=== PATIENT | female | born 1965 | race Caucasian/White ===

== ENCOUNTER → 2016-03-26 | Outpatient (CLI) | payer OTHER ==
[~2016-03-26] MED LIST: ASPI1TAB PO; CETI10TA PO; CHLO25TA PO; CLOT1CRE71 TOP; DRIS50002 PO; GUAI10EL PO; IBUP-1114 PO; PROV10TA PO; TYLE325T5 PO; VITMTA PO; XARE15TA PO; ZANTTAB9 PO
== END ==
LOC: M HL 14:14
PROVIDERS: ATTEND Physician Assistant
DX: E11.9 Type 2 diabetes mellitus without complications (principal)

== ENCOUNTER → 2016-04-09 | Outpatient (CLI) | payer OTHER | LOC: M HL 13:56 | PROVIDERS: ATTEND Physician Assistant | DX: E11.9 Type 2 diabetes mellitus without complications (principal) ==

== ENCOUNTER 2016-05-21 15:11 | Emergency (ER) | payer OTHER ==
[~2016-05-21] VITALS: Ht 172.7 cm; Wt 190.5 kg
[2016-05-21] MEDS ORDERED: VITA-115 PO (15:33)
[2016-05-21] MEDS ORDERED: LISI20TA3 PO (15:33)
--- NOTE | 2016-05-21 16:35 | REP ---
Right lower extremity Duplex Doppler venous ultrasound: Real time compression and duplex Doppler interrogation of the right lower extremity deep venous system is performed. The right common femoral, superficial femoral and popliteal veins are fully compressible with transducer pressure and demonstrate normal spontaneous and phasic flow, without evidence of deep venous thrombosis. Impression: No evidence of deep venous thrombosis of the right lower extremity femoral popliteal venous system. Incidental note is made of a popliteal cyst measuring 5.2 x 2 x 2.9 cm. Signed by Estrada Baker MD 05/21/2016 04:26 P
[2016-05-21] MEDS ORDERED: MOTR200T44 PO (18:02)
[2016-05-21 18:17] VITALS: BP 148/88
== END 2016-05-21 18:44 | disposition home or self-care (01) ==
LOC: M ED 16:38
DX: S86.911A Strain of unspecified muscle(s) and tendon(s) at lower leg level, right leg, initial encounter (principal); M71.21 Synovial cyst of popliteal space [Baker], right knee; X58.XXXA Exposure to other specified factors, initial encounter; Y92.89 Other specified places as the place of occurrence of the external cause; Y93.01 Activity, walking, marching and hiking; Y99.8 Other external cause status; I10 Essential (primary) hypertension; Z88.0 Allergy status to penicillin; Z91.040 Latex allergy status; Z79.899 Other long term (current) drug therapy

== ENCOUNTER → 2016-05-25 | Outpatient (CLI) | payer OTHER ==
[~2016-05-25] MED LIST changes: +LISI20TA3 PO; +MOTR200T44 PO; +VITA-115 PO
[2016-05-25 09:04] LABS: ALBUMIN 3.7 GM/DL (3.2-5.2); ALBUMIN/GLOBULIN RATIO 1.16 (1.00-1.93); ALKALINE PHOSPHATASE 56 U/L (45-117); ALT/SGPT 41 U/L (12-78); ANION GAP 6 MEQ/L (8-16); AST/SGOT 19 U/L (15-37); BILIRUBIN,TOTAL 0.6 MG/DL (0.2-1.0); BLOOD UREA NITROGEN 17 MG/DL (7-18); CALCIUM LEVEL 8.9 MG/DL (8.5-10.1); CARBON DIOXIDE LEVEL 31 MEQ/L (21-32); CHLORIDE LEVEL 102 MEQ/L (98-107); GLOMERULAR FILTRATION RATE > 60.0 (>51); GLUCOSE, FASTING 148 MG/DL (70-105); POTASSIUM SERUM 4.4 MEQ/L (3.5-5.1); SODIUM LEVEL 139 MEQ/L (136-145); TOTAL PROTEIN 6.9 GM/DL (6.4-8.2)
== END ==
LOC: M LAB 08:02
PROVIDERS: ATTEND Physician Assistant
DX: E11.9 Type 2 diabetes mellitus without complications (principal)

== ENCOUNTER → 2016-07-17 | Outpatient (CLI) | payer OTHER ==
[~2016-07-17] MED LIST changes: +METHACHOLINE KIT (J7674) INH ONE
--- NOTE | 2016-07-17 15:10 | PFTRPT ---
Tech: Nazia MOBLEY RRT Age: 50 Sex: Female Race: Height: 68.00 Inches Weight: 423.00 Lbs BSA: 2.81 Diagnosis: R05 METHACHOLINE CHALLENGE REPORT: ORDERING PROVIDER: DHIRAJ Yarbrough DATE OF SERVICE: 07/17/16 INTERPRETATION: The study was of excellent technical quality. Under protocol, methacholine was administered. At a dose of 2.5 mg (13.875 CDUs), a 28% decline in the FEV1 was noted. The PC20 of 0.74 is significant. Flow rates returned to baseline post bronchodilator administration. IMPRESSION: Positive methacholine challenge study. MTDD
== END ==
LOC: M CARPUL 07-15 13:28
PROVIDERS: ATTEND Nurse Practitioner Adult Health
DX: R05 Cough (principal)

== ENCOUNTER 2016-12-16 23:20 | Emergency (ER) | payer OTHER ==
[~2016-12-16] VITALS: Ht 172.7 cm; Wt 190.9 kg
[~2016-12-16 23:20] MED LIST changes: -METHACHOLINE KIT (J7674) INH ONE
[2016-12-16] MEDS ORDERED: ARNU1INH3 IN (23:36)
[2016-12-16] MEDS ORDERED: PROAAER10 INH (23:36)
[2016-12-16] MEDS ORDERED: ASPI81CH PO (23:36)
[2016-12-17 00:29] VITALS: BP 162/78
== END 2016-12-17 01:10 | disposition home or self-care (01) ==
LOC: M ED 23:20
DX: M54.12 Radiculopathy, cervical region (principal); E66.9 Obesity, unspecified; J45.909 Unspecified asthma, uncomplicated; I10 Essential (primary) hypertension; F41.9 Anxiety disorder, unspecified; Z79.899 Other long term (current) drug therapy; Z88.2 Allergy status to sulfonamides; Z88.0 Allergy status to penicillin; Z87.891 Personal history of nicotine dependence; Z96.9 Presence of functional implant, unspecified

== ENCOUNTER → 2016-12-23 | Outpatient (CLI) | payer OTHER ==
[~2016-12-23] MED LIST changes: +ARNU1INH3 IN; +ASPI81CH PO; +PROAAER10 INH
[2016-12-23 17:14] LABS: BASO % 0.4 % (0.0-1.0); EOS # 0.1 10^3/uL (0.0-0.50); EOS % 1.6 % (0.0-3.0); IMMATURE GRANULOCYTE % 0.6 % (0-0); LYMPH # 1.8 10^3/uL (1.5-4.5); LYMPH % 27.1 % (24.0-44.0); MEAN CORPUSCULAR HEMOGLOBIN 28.1 pg (27.0-33.0); MEAN CORPUSCULAR HGB CONC 32.2 g/dl (32.0-36.5); MEAN CORPUSCULAR VOLUME 87.1 fl (80.0-96.0); MONO # 0.5 10^3/uL (0.0-0.8); MONO % 7.7 % (0.0-5.0); NEUTROPHILS # 4.2 10^3/uL (1.8-7.7); NEUTROPHILS % 62.6 % (36.0-66.0); PLATELET COUNT, AUTOMATED 164 10^3/uL (150-450); RED CELL DISTRIBUTION WIDTH 12.9 % (11.5-14.5); WHITE BLOOD COUNT 6.8 10^3/uL (4.0-10.0)
--- NOTE | 2016-12-23 17:51 | REP ---
Left knee series: Five views: History: Primary hypertension. Left knee pain. Findings: There is advanced three compartment osteoarthritis with medial, lateral and patellofemoral narrowing and well established spur formation. There is diffuse osteopenia. No erosive changes seen. No acute bony abnormality. Impression: Advanced three compartment osteoarthritis of the left knee. Signed by Jostin Sanz MD 12/23/2016 05:53 P
[2016-12-23 18:37] LABS: ALBUMIN 3.7 GM/DL (3.2-5.2); ALBUMIN/GLOBULIN RATIO 1.03 (1.00-1.93); ALKALINE PHOSPHATASE 56 U/L (45-117); ALT/SGPT 60 U/L (12-78); ANION GAP 6 MEQ/L (8-16); AST/SGOT 31 U/L (15-37); BILIRUBIN,TOTAL 0.5 MG/DL (0.2-1.0); BLOOD UREA NITROGEN 17 MG/DL (7-18); CALCIUM LEVEL 9.3 MG/DL (8.5-10.1); CARBON DIOXIDE LEVEL 31 MEQ/L (21-32); CHLORIDE LEVEL 103 MEQ/L (98-107); CREATININE FOR GFR 0.61 MG/DL (0.55-1.02); FREE T4 1.02 NG/DL (0.76-1.46); GLOMERULAR FILTRATION RATE > 60.0 (>51); GLUCOSE, FASTING 121 MG/DL (70-105); POTASSIUM SERUM 4.2 MEQ/L (3.5-5.1); SODIUM LEVEL 140 MEQ/L (136-145); TOTAL PROTEIN 7.3 GM/DL (6.4-8.2)
== END ==
LOC: M LAB 15:56
PROVIDERS: ATTEND Physician Assistant
DX: I10 Essential (primary) hypertension (principal); E11.9 Type 2 diabetes mellitus without complications; E55.9 Vitamin D deficiency, unspecified; M79.605 Pain in left leg

== ENCOUNTER → 2016-12-24 | Outpatient (CLI) | payer OTHER ==
--- NOTE | 2016-12-24 15:58 | REP ---
Left upper extremity duplex Doppler venous ultrasound. Real time compression and duplex Doppler evaluation of the left upper extremity deep venous system is performed. The left subclavian, jugular, axillary, brachial, basilic and cephalic veins are fully compressible where accessible with transducer pressure, and demonstrate no intraluminal thrombus and normal venous waveforms. There is no evidence of deep venous thrombosis. Impression: No evidence of deep venous thrombosis of the left upper extremity deep vein system. Signed by Estrada Baker MD 12/24/2016 03:49 P
--- NOTE | 2016-12-24 16:39 | REP ---
Left lower extremity deep vein duplex ultrasound: The deep veins demonstrate normal compression, normal Doppler color flow and normal Doppler waveforms with respiration and augmentation from the popliteal vein to the common femoral vein. Impression: There is no deep vein thrombus of the left lower extremity . Signed by Estrada Osman MD 12/24/2016 04:28 P
== END ==
LOC: M RAD 14:41
PROVIDERS: ATTEND Physician Assistant
DX: R79.89 Other specified abnormal findings of blood chemistry (principal); M79.602 Pain in left arm

== ENCOUNTER → 2017-05-27 | Outpatient (CLI) | payer OTHER ==
[2017-05-27 12:03] LABS: BASO % 0.4 % (0.0-1.0); EOS # 0.1 10^3/uL (0.0-0.50); EOS % 1.4 % (0.0-3.0); HEMATOCRIT 39.8 % (36.0-47.0); HEMOGLOBIN 12.7 g/dl (12.0-16.0); IMMATURE GRANULOCYTE % 0.6 % (0-3.0); LYMPH # 1.4 10^3/uL (1.5-4.5); LYMPH % 17.2 % (24.0-44.0); MEAN CORPUSCULAR HEMOGLOBIN 27.8 pg (27.0-33.0); MEAN CORPUSCULAR HGB CONC 31.9 g/dl (32.0-36.5); MEAN CORPUSCULAR VOLUME 87.1 fl (80.0-96.0); MONO # 0.6 10^3/uL (0.0-0.8); MONO % 7.1 % (0.0-5.0); NEUTROPHILS # 5.9 10^3/uL (1.8-7.7); NEUTROPHILS % 73.3 % (36.0-66.0); PLATELET COUNT, AUTOMATED 198 10^3/uL (150-450); RED BLOOD COUNT 4.57 10^6/uL (4.00-5.40); RED CELL DISTRIBUTION WIDTH 13.2 % (11.5-14.5); WHITE BLOOD COUNT 8.1 10^3/uL (4.0-10.0)
[2017-05-27 12:24] LABS: D-DIMER QUANT 1139.9 ng/ml (<500)
[2017-05-27 12:26] LABS: ALBUMIN 3.8 GM/DL (3.2-5.2); ALBUMIN/GLOBULIN RATIO 1.06 (1.00-1.93); ALKALINE PHOSPHATASE 64 U/L (45-117); ALT/SGPT 34 U/L (12-78); ANION GAP 6 MEQ/L (8-16); AST/SGOT 22 U/L (7-37); BILIRUBIN,TOTAL 0.6 MG/DL (0.2-1.0); BLOOD UREA NITROGEN 17 MG/DL (7-18); CALCIUM LEVEL 9.3 MG/DL (8.5-10.1); CARBON DIOXIDE LEVEL 31 MEQ/L (21-32); CHLORIDE LEVEL 102 MEQ/L (98-107); CHOLESTEROL LEVEL 214 MG/DL (<200); CHOLESTEROL RISK RATIO 6.114 (<5); CREATININE FOR GFR 0.64 MG/DL (0.55-1.30); GLOMERULAR FILTRATION RATE > 60.0 (>51); GLUCOSE, FASTING 120 MG/DL (70-100); HDL CHOLESTEROL 35 MG/DL (>40); LDL CHOLESTEROL 132.4 MG/DL (<100); MAGNESIUM LEVEL 2.2 MG/DL (1.8-2.4); NON-HDL-C 179 MG/DL; POTASSIUM SERUM 4.1 MEQ/L (3.5-5.1); SODIUM LEVEL 139 MEQ/L (136-145); TOTAL PROTEIN 7.4 GM/DL (6.4-8.2); TRIGLYCERIDES LEVEL 233 MG/DL (<150)
[2017-05-27 12:33] LABS: TOTAL 25(OH) VITAMIN D 30.2 NG/ML (30.0-100.0)
[2017-05-27 12:50] LABS: ESTIMATED AVERAGE GLUCOSE 160 MG/DL (60-110); HEMOGLOBIN A1c 7.2 %
[2017-05-27 12:57] LABS: CREATININE, URINE 21.7 MG/DL; MALB URINE SIEMENS 15.6 MG/L; MAU/CREAT RATIO 71.8 MCG/MG (0.0-30.0)
== END ==
LOC: M LAB 11:24
DX: D50.9 Iron deficiency anemia, unspecified (principal); M79.605 Pain in left leg; R79.1 Abnormal coagulation profile

== ENCOUNTER → 2017-07-07 | Outpatient (REF) | payer OTHER | LOC: M SFHCCAPE 15:52 | DX: L08.9 Local infection of the skin and subcutaneous tissue, unspecified (principal) ==

== ENCOUNTER → 2018-01-14 | Outpatient (CLI) | payer OTHER | LOC: M RAD 15:39 | DX: Z12.31 Encounter for screening mammogram for malignant neoplasm of breast (principal); R92.1 Mammographic calcification found on diagnostic imaging of breast; R92.8 Other abnormal and inconclusive findings on diagnostic imaging of breast | CPT/HCPCS: 77067 ==

== ENCOUNTER → 2018-01-26 | Outpatient (CLI) | payer OTHER ==
[2018-01-26 08:13] LABS: BASO % 0.4 % (0.0-1.0); EOS # 0.2 10^3/uL (0.0-0.50); EOS % 2.5 % (0.0-3.0); HEMATOCRIT 40.9 % (36.0-47.0); HEMOGLOBIN 13.5 g/dl (12.0-15.5); IMMATURE GRANULOCYTE % 0.7 % (0-3.0); LYMPH # 1.6 10^3/uL (1.5-4.5); LYMPH % 23.6 % (24.0-44.0); MEAN CORPUSCULAR HEMOGLOBIN 28.6 pg (27.0-33.0); MEAN CORPUSCULAR VOLUME 86.7 fl (80.0-96.0); MONO # 0.6 10^3/uL (0.0-0.8); MONO % 8.1 % (0.0-5.0); NEUTROPHILS # 4.4 10^3/uL (1.8-7.7); NEUTROPHILS % 64.7 % (36.0-66.0); PLATELET COUNT, AUTOMATED 161 10^3/uL (150-450); RED BLOOD COUNT 4.72 10^6/uL (4.00-5.40); RED CELL DISTRIBUTION WIDTH 13.1 % (11.5-14.5); WHITE BLOOD COUNT 6.8 10^3/uL (4.0-10.0)
[2018-01-26 08:29] LABS: ESTIMATED AVERAGE GLUCOSE 209 MG/DL (60-110); HEMOGLOBIN A1c 8.9 %
[2018-01-26 08:51] LABS: ALBUMIN 3.7 GM/DL (3.2-5.2); ALBUMIN/GLOBULIN RATIO 1.06 (1.00-1.93); ALKALINE PHOSPHATASE 68 U/L (45-117); ALT/SGPT 39 U/L (12-78); ANION GAP 8 MEQ/L (8-16); AST/SGOT 18 U/L (7-37); BILIRUBIN,TOTAL 0.6 MG/DL (0.2-1.0); BLOOD UREA NITROGEN 17 MG/DL (7-18); CALCIUM LEVEL 8.9 MG/DL (8.5-10.1); CARBON DIOXIDE LEVEL 30 MEQ/L (21-32); CHLORIDE LEVEL 96 MEQ/L (98-107); CHOLESTEROL LEVEL 222 MG/DL (<200); CREATININE FOR GFR 0.68 MG/DL (0.55-1.30); GLOMERULAR FILTRATION RATE > 60.0 (>51); GLUCOSE, FASTING 244 MG/DL (70-100); HDL CHOLESTEROL 37 MG/DL (>40); LDL CHOLESTEROL 105 MG/DL (<100); NON-HDL-C 185 MG/DL; SODIUM LEVEL 134 MEQ/L (136-145); TOTAL PROTEIN 7.2 GM/DL (6.4-8.2); TRIGLYCERIDES LEVEL 398 MG/DL (<150)
== END ==
LOC: M LAB 07:08
DX: E11.69 Type 2 diabetes mellitus with other specified complication (principal)
CPT/HCPCS: 84443

== ENCOUNTER → 2018-04-23 | Outpatient (CLI) | payer OTHER ==
[~2018-04-23] MED LIST changes: -DRIS50002 PO; +DRIS50003 PO
[2018-04-23 09:54] LABS: BASO % 0.6 % (0.0-1.0); EOS # 0.3 10^3/uL (0.0-0.50); EOS % 4.2 % (0.0-3.0); HEMATOCRIT 42.3 % (36.0-47.0); HEMOGLOBIN 13.3 g/dl (12.0-15.5); LYMPH # 1.6 10^3/uL (1.5-4.5); LYMPH % 23.4 % (24.0-44.0); MEAN CORPUSCULAR HEMOGLOBIN 27.8 pg (27.0-33.0); MEAN CORPUSCULAR HGB CONC 31.4 g/dl (32.0-36.5); MEAN CORPUSCULAR VOLUME 88.3 fl (80.0-96.0); MONO # 0.5 10^3/uL (0.0-0.8); MONO % 7.4 % (0.0-5.0); NEUTROPHILS # 4.4 10^3/uL (1.8-7.7); NEUTROPHILS % 63.8 % (36.0-66.0); PLATELET COUNT, AUTOMATED 154 10^3/uL (150-450); RED BLOOD COUNT 4.79 10^6/uL (4.00-5.40); WHITE BLOOD COUNT 6.9 10^3/uL (4.0-10.0)
[2018-04-23 10:07] LABS: ALBUMIN 3.7 GM/DL (3.2-5.2); ALT/SGPT 45 U/L (12-78); BILIRUBIN,TOTAL 0.6 MG/DL (0.2-1.0); BLOOD UREA NITROGEN 17 MG/DL (7-18); CARBON DIOXIDE LEVEL 31 MEQ/L (21-32); CHLORIDE LEVEL 103 MEQ/L (98-107); CHOLESTEROL LEVEL 207 MG/DL (<200); CHOLESTEROL RISK RATIO 5.447 (<5); CREATININE FOR GFR 0.54 MG/DL (0.55-1.30); GLOMERULAR FILTRATION RATE > 60.0 (>51); GLUCOSE, FASTING 117 MG/DL (70-100); HDL CHOLESTEROL 38 MG/DL (>40); LDL CHOLESTEROL 134 MG/DL (<100); NON-HDL-C 169 MG/DL; SODIUM LEVEL 140 MEQ/L (136-145); TOTAL PROTEIN 7.2 GM/DL (6.4-8.2); TRIGLYCERIDES LEVEL 177 MG/DL (<150)
[2018-04-23 10:50] LABS: HEMOGLOBIN A1c 7.3 %
== END ==
LOC: M LAB 08:06
PROVIDERS: ATTEND Physician Assistant
DX: E11.69 Type 2 diabetes mellitus with other specified complication (principal)

== ENCOUNTER → 2018-07-09 | Outpatient (CLI) | payer OTHER ==
[~2018-07-09] MED LIST changes: -ASPI1TAB PO; -ASPI81CH PO; +ASPI81CH49 PO; +ASPI81TA26 PO; +CHLO125TA PO; -CHLO25TA PO; +GUAI100L5 PO; -GUAI10EL PO
[2018-07-09 17:31] LABS: BASO % 0.4 % (0.0-1.0); EOS # 0.3 10^3/uL (0.0-0.50); EOS % 4.2 % (0.0-3.0); HEMATOCRIT 39.9 % (36.0-47.0); HEMOGLOBIN 12.8 g/dl (12.0-15.5); LYMPH # 2.3 10^3/uL (1.5-4.5); LYMPH % 31.4 % (24.0-44.0); MEAN CORPUSCULAR HEMOGLOBIN 28.8 pg (27.0-33.0); MEAN CORPUSCULAR HGB CONC 32.1 g/dl (32.0-36.5); MEAN CORPUSCULAR VOLUME 89.7 fl (80.0-96.0); MONO # 0.5 10^3/uL (0.0-0.8); MONO % 6.5 % (0.0-5.0); NEUTROPHILS # 4.2 10^3/uL (1.8-7.7); NEUTROPHILS % 57.2 % (36.0-66.0); PLATELET COUNT, AUTOMATED 153 10^3/uL (150-450); RED BLOOD COUNT 4.45 10^6/uL (4.00-5.40); WHITE BLOOD COUNT 7.4 10^3/uL (4.0-10.0)
[2018-07-09 17:55] LABS: ALBUMIN 3.9 GM/DL (3.2-5.2); ALT/SGPT 37 U/L (12-78); BILIRUBIN,TOTAL 0.5 MG/DL (0.2-1.0); BLOOD UREA NITROGEN 20 MG/DL (7-18); CALCIUM LEVEL 8.9 MG/DL (8.5-10.1); CARBON DIOXIDE LEVEL 30 MEQ/L (21-32); CHLORIDE LEVEL 105 MEQ/L (98-107); CREATININE FOR GFR 0.67 MG/DL (0.55-1.30); GLOMERULAR FILTRATION RATE > 60.0 (>51); GLUCOSE, FASTING 91 MG/DL (70-100); POTASSIUM SERUM 3.9 MEQ/L (3.5-5.1); SODIUM LEVEL 141 MEQ/L (136-145); TOTAL PROTEIN 6.9 GM/DL (6.4-8.2)
[2018-07-09 18:07] LABS: HEMOGLOBIN A1c 6.2 %
== END ==
LOC: M LAB 16:55
PROVIDERS: ATTEND Surgery
DX: Z01.812 Encounter for preprocedural laboratory examination (principal); K21.9 Gastro-esophageal reflux disease without esophagitis; G47.33 Obstructive sleep apnea (adult) (pediatric)

== ENCOUNTER → 2018-08-28 | Outpatient (REF) | payer OTHER ==
[2018-08-28 21:49] LABS: APPEARANCE, URINE CLOUDY (CLEAR); BACTERIA, URINE AUTO 2+ (NEGATIVE); BILIRUBIN, URINE AUTO NEGATIVE (NEGATIVE); BLOOD, URINE BLOOD 2+ (NEGATIVE); COLOR, URINE YELLOW (YELLOW); GLUCOSE, URINE (UA) AUTO NEGATIVE (NEGATIVE); KETONE, URINE AUTO 1+ mg/dL (NEGATIVE); LEUKOCYTE ESTERASE, URINE AUTO 3+ (NEGATIVE); MUCUS, URINE SMALL (NEGATIVE); NITRITE, URINE AUTO NEGATIVE (NEGATIVE); PROTEIN, URINE AUTO 2+ mg/dL (NEGATIVE); RBC, URINE AUTO 114 /HPF (0-3); SPECIFIC GRAVITY URINE AUTO 1.016 (1.002-1.035); SQUAMOUS EPITHELIAL CELL UR AU 2 /HPF (0-6); UROBILINOGEN, URINE AUTO 0.2 mg/dL (0.0-2.0); WBC, URINE AUTO TNTC /HPF (0-3)
== END ==
LOC: M LAB REF 12:24
PROVIDERS: ATTEND Physician Assistant
DX: N39.0 Urinary tract infection, site not specified (principal)

== ENCOUNTER → 2018-09-05 | Outpatient (REF) | payer OTHER ==
[2018-09-05 22:42] LABS: APPEARANCE, URINE CLOUDY (CLEAR); BACTERIA, URINE AUTO 3+ (NEGATIVE); BILIRUBIN, URINE AUTO NEGATIVE (NEGATIVE); BLOOD, URINE BLOOD 1+ (NEGATIVE); CALCIUM OXALATE CRYSTALS LARGE; COLOR, URINE AMBER (YELLOW); GLUCOSE, URINE (UA) AUTO NEGATIVE (NEGATIVE); KETONE, URINE AUTO 1+ mg/dL (NEGATIVE); LEUKOCYTE ESTERASE, URINE AUTO 2+ (NEGATIVE); MUCUS, URINE SMALL (NEGATIVE); NITRITE, URINE AUTO POSITIVE (NEGATIVE); PROTEIN, URINE AUTO 1+ mg/dL (NEGATIVE); RBC, URINE AUTO 11 /HPF (0-3); SPECIFIC GRAVITY URINE AUTO 1.027 (1.002-1.035); SQUAMOUS EPITHELIAL CELL UR AU 5 /HPF (0-6); UROBILINOGEN, URINE AUTO 0.2 mg/dL (0.0-2.0); WBC, URINE AUTO 120 /HPF (0-3)
== END ==
LOC: M LAB REF 09:17
PROVIDERS: ATTEND Physician Assistant Medical
DX: N39.0 Urinary tract infection, site not specified (principal)

== ENCOUNTER → 2018-09-08 | Outpatient (CLI) | payer OTHER ==
[2018-09-08 15:43] LABS: BASO % 0.4 % (0.0-1.0); EOS # 0.1 10^3/uL (0.0-0.50); EOS % 1.9 % (0.0-3.0); HEMATOCRIT 39.4 % (36.0-47.0); HEMOGLOBIN 12.7 g/dl (12.0-15.5); LYMPH # 2.1 10^3/uL (1.5-4.5); MEAN CORPUSCULAR HEMOGLOBIN 28.3 pg (27.0-33.0); MEAN CORPUSCULAR HGB CONC 32.2 g/dl (32.0-36.5); MEAN CORPUSCULAR VOLUME 87.9 fl (80.0-96.0); MONO # 0.6 10^3/uL (0.0-0.8); MONO % 9.1 % (0.0-5.0); NEUTROPHILS # 3.8 10^3/uL (1.8-7.7); NEUTROPHILS % 57.5 % (36.0-66.0); PLATELET COUNT, AUTOMATED 124 10^3/uL (150-450); RED BLOOD COUNT 4.48 10^6/uL (4.00-5.40); WHITE BLOOD COUNT 6.7 10^3/uL (4.0-10.0)
[2018-09-08 15:48] LABS: HEMOGLOBIN A1c 5.7 %
[2018-09-08 15:49] LABS: HEMATOCRIT 39.4 % (36.0-47.0)
[2018-09-08 16:06] LABS: ALBUMIN 3.7 GM/DL (3.2-5.2); ALT/SGPT 38 U/L (12-78); BILIRUBIN,TOTAL 0.6 MG/DL (0.2-1.0); BLOOD UREA NITROGEN 10 MG/DL (7-18); CALCIUM LEVEL 9.3 MG/DL (8.5-10.1); CARBON DIOXIDE LEVEL 28 MEQ/L (21-32); CHLORIDE LEVEL 107 MEQ/L (98-107); FERRITIN 197 NG/ML (8-252); GLOMERULAR FILTRATION RATE > 60.0 (>51); GLUCOSE, FASTING 95 MG/DL (70-100); IRON (FE) 28 UG/DL (50-170); PERCENT SATURATION 9.9 % (13.2-45.0); PHOSPHORUS LEVEL 3.4 MG/DL (2.5-4.9); SODIUM LEVEL 142 MEQ/L (136-145); TOTAL IRON BINDING CAPACITY 283 UG/DL (250-450); TOTAL PROTEIN 6.9 GM/DL (6.4-8.2)
[2018-09-08 16:15] LABS: TOTAL 25(OH) VITAMIN D 35.6 NG/ML (30.0-100.0); VITAMIN B12 LEVEL 412 PG/ML (247-911)
== END ==
LOC: M LAB 14:49
PROVIDERS: ATTEND Surgery
DX: K91.2 Postsurgical malabsorption, not elsewhere classified (principal); E55.9 Vitamin D deficiency, unspecified; Z98.84 Bariatric surgery status

== ENCOUNTER → 2018-11-05 | Outpatient (REF) | payer OTHER ==
[~2018-11-05] MED LIST changes: +LISI20TA20 PO; -LISI20TA3 PO
[2018-11-09 14:07] LABS: HPV HYBRID CAPTURE II Negative (Negative)
== END ==
LOC: M LAB REF 17:07
PROVIDERS: ATTEND Obstetrics & Gynecology
DX: Z12.4 Encounter for screening for malignant neoplasm of cervix (principal)

== ENCOUNTER → 2019-03-15 | Outpatient (REF) | payer OTHER ==
[2019-03-15 11:36] LABS: BASO % 0.6 % (0.0-1.0); EOS # 0.1 10^3/uL (0.0-0.5); HEMATOCRIT 42.8 % (36.0-47.0); HEMOGLOBIN 13.2 g/dl (12.0-15.5); LYMPH # 1.8 10^3/uL (1.5-5.0); MEAN CORPUSCULAR HEMOGLOBIN 29.1 pg (27.0-33.0); MEAN CORPUSCULAR HGB CONC 30.8 g/dl (32.0-36.5); MEAN CORPUSCULAR VOLUME 94.3 fl (80.0-96.0); MONO # 0.4 10^3/uL (0.0-0.8); MONO % 7.8 % (0.0-5.0); NEUTROPHILS # 2.3 10^3/uL (1.5-8.5); NEUTROPHILS % 49.2 % (36.0-66.0); PLATELET COUNT, AUTOMATED 122 10^3/uL (150-450); RED BLOOD COUNT 4.54 10^6/uL (4.00-5.40); WHITE BLOOD COUNT 4.6 10^3/uL (4.0-10.0)
[2019-03-15 11:37] LABS: HEMATOCRIT 42.8 % (36.0-47.0)
[2019-03-15 11:42] LABS: ALBUMIN 3.5 GM/DL (3.2-5.2); ALT/SGPT 28 U/L (12-78); BILIRUBIN,TOTAL 0.5 MG/DL (0.2-1.0); BLOOD UREA NITROGEN 17 MG/DL (7-18); CALCIUM LEVEL 9.1 MG/DL (8.5-10.1); CARBON DIOXIDE LEVEL 31 MEQ/L (21-32); CHLORIDE LEVEL 109 MEQ/L (98-107); CREATININE FOR GFR 0.59 MG/DL (0.55-1.30); FERRITIN 125 NG/ML (8-252); GLOMERULAR FILTRATION RATE > 60.0 (>51); GLUCOSE, FASTING 69 MG/DL (70-100); IRON (FE) 93 UG/DL (50-170); MAGNESIUM LEVEL 2.1 MG/DL (1.8-2.4); PERCENT SATURATION 26.9 % (13.2-45.0); PHOSPHORUS LEVEL 3.7 MG/DL (2.5-4.9); SODIUM LEVEL 144 MEQ/L (136-145); TOTAL IRON BINDING CAPACITY 346 UG/DL (250-450); TOTAL PROTEIN 6.4 GM/DL (6.4-8.2)
[2019-03-15 11:51] LABS: TOTAL 25(OH) VITAMIN D 37.9 NG/ML (30.0-100.0); VITAMIN B12 LEVEL 1118 PG/ML (247-911)
[2019-03-15 14:32] LABS: HEMOGLOBIN A1c 5.4 %
== END ==
LOC: M LABDRAWC 11:15
PROVIDERS: ATTEND Physician Assistant
DX: K91.2 Postsurgical malabsorption, not elsewhere classified (principal); Z98.84 Bariatric surgery status; E55.9 Vitamin D deficiency, unspecified

== ENCOUNTER → 2019-04-02 | Outpatient (CLI) | payer OTHER ==
[2019-04-02 08:17] LABS: BASO % 0.5 % (0.0-1.0); EOS # 0.1 10^3/uL (0.0-0.5); EOS % 2.2 % (0.0-3.0); HEMATOCRIT 43.7 % (36.0-47.0); HEMOGLOBIN 13.5 g/dl (12.0-15.5); LYMPH # 1.8 10^3/uL (1.5-5.0); LYMPH % 30.3 % (24.0-44.0); MEAN CORPUSCULAR HEMOGLOBIN 28.7 pg (27.0-33.0); MEAN CORPUSCULAR HGB CONC 30.9 g/dl (32.0-36.5); MEAN CORPUSCULAR VOLUME 92.8 fl (80.0-96.0); MONO # 0.4 10^3/uL (0.0-0.8); MONO % 7.3 % (0.0-5.0); NEUTROPHILS # 3.5 10^3/uL (1.5-8.5); NEUTROPHILS % 59.4 % (36.0-66.0); PLATELET COUNT, AUTOMATED 142 10^3/uL (150-450); RED BLOOD COUNT 4.71 10^6/uL (4.00-5.40); WHITE BLOOD COUNT 5.9 10^3/uL (4.0-10.0)
[2019-04-02 08:43] LABS: ALBUMIN 3.6 GM/DL (3.2-5.2); ALT/SGPT 33 U/L (12-78); BILIRUBIN,TOTAL 0.6 MG/DL (0.2-1.0); BLOOD UREA NITROGEN 20 MG/DL (7-18); CALCIUM LEVEL 8.9 MG/DL (8.5-10.1); CARBON DIOXIDE LEVEL 32 MEQ/L (21-32); CHLORIDE LEVEL 106 MEQ/L (98-107); CHOLESTEROL LEVEL 190 MG/DL (<200); CHOLESTEROL RISK RATIO 3.166 (<5); FREE T4 1.05 NG/DL (0.76-1.46); GLOMERULAR FILTRATION RATE > 60.0 (>51); GLUCOSE, FASTING 78 MG/DL (70-100); HDL CHOLESTEROL 60 MG/DL (>40); LDL CHOLESTEROL 116 MG/DL (<100); NON-HDL-C 130 MG/DL; POTASSIUM SERUM 4.2 MEQ/L (3.5-5.1); SODIUM LEVEL 142 MEQ/L (136-145); TOTAL PROTEIN 6.5 GM/DL (6.4-8.2); TRIGLYCERIDES LEVEL 71 MG/DL (<150)
[2019-04-02 08:49] LABS: CREATININE, URINE 28.4 MG/DL; MALB URINE SIEMENS 5.1 MG/L; MAU/CREAT RATIO 17.9 MCG/MG (0.0-30.0)
[2019-04-02 09:15] LABS: HEMOGLOBIN A1c 5.4 %
[2019-04-04 11:01] LABS: TOTAL 25(OH) VITAMIN D 39.9 NG/ML (30.0-100.0); VITAMIN B12 LEVEL 531 PG/ML
[2019-04-04 11:35] LABS: FOLATE 21.7 NG/ML
== END ==
LOC: M LAB 06:47
PROVIDERS: ATTEND Physician Assistant
DX: I10 Essential (primary) hypertension (principal); E55.9 Vitamin D deficiency, unspecified; E11.69 Type 2 diabetes mellitus with other specified complication; Z98.84 Bariatric surgery status

== ENCOUNTER → 2019-05-13 | Outpatient (CLI) | payer OTHER ==
--- NOTE | 2019-05-13 15:44 | REPMRS ---
Patient History The patient states she had a clinical breast exam in 2018. Family history of ovarian cancer in maternal grandmother. Benign radio exam breast specimen of the left breast, March 19, 2012. Benign stereotatic loc for ea lesion of the left breast, March 19, 2012. Patient had gastric bypass surgery 07/2018, has had a 100lb weight loss since then Digital Woman Screen Mammo: May 13, 2019 - Exam #: [id number] Bilateral CC and MLO view(s) were taken. Technologist: Paz Willson, Technologist Prior study comparison: January 14, 2018, bilateral digital mammo screening bilat, performed at [facility]. January 15, 2012, bilateral digital woman screen mammo, performed at [facility]. December 06, 2010, bilateral digital woman screen mammo, performed at [facility]. FINDINGS: There are scattered fibroglandular densities. There is a needle biopsy marker clip in the left medial breast. Anterior to this there is a stable nodule containing some calcifications unchanged from the 2011 prior study. There has been no change in the appearance of the mammogram from the prior studies. There is a mild amount of scattered fibroglandular density which is fairly symmetric. There is no interval development of dominant mass, architectural distortion, or grouped microcalcification suggestive of malignancy. 3-D tomosynthesis shows no additional findings. Assessment: BI-RADS/ACR category 2 mammogram. Benign Findings. Recommendation Routine screening mammogram of both breasts in 1 year (for women over age 40). This patient's Lifetime Breast Cancer Risk is estimated at 7.9 %. This mammogram was interpreted with the aid of an FDA-approved computer-aided dectection system. Electronically Signed By: Uriel Sanz MD 05/13/19 [id number]
== END ==
LOC: M WHC 14:13
PROVIDERS: ATTEND Physician Assistant
DX: Z12.31 Encounter for screening mammogram for malignant neoplasm of breast (principal)

== ENCOUNTER → 2019-09-10 | Outpatient (CLI) | payer OTHER ==
[2019-09-10 08:58] LABS: BASO % 0.6 % (0.0-1.0); EOS # 0.1 10^3/uL (0.0-0.5); EOS % 2.4 % (0.0-3.0); HEMOGLOBIN 13.8 g/dl (12.0-15.5); LYMPH # 1.9 10^3/uL (1.5-5.0); LYMPH % 37.2 % (24.0-44.0); MEAN CORPUSCULAR HEMOGLOBIN 29.2 pg (27.0-33.0); MEAN CORPUSCULAR HGB CONC 32.1 g/dl (32.0-36.5); MEAN CORPUSCULAR VOLUME 90.9 fl (80.0-96.0); MONO # 0.4 10^3/uL (0.0-0.8); MONO % 8.7 % (0.0-5.0); NEUTROPHILS # 2.6 10^3/uL (1.5-8.5); NEUTROPHILS % 50.7 % (36.0-66.0); PLATELET COUNT, AUTOMATED 144 10^3/uL (150-450); RED BLOOD COUNT 4.73 10^6/uL (4.00-5.40); WHITE BLOOD COUNT 5.1 10^3/uL (4.0-10.0)
[2019-09-10 09:46] LABS: HEMOGLOBIN A1c 5.5 %
[2019-09-10 10:13] LABS: ALBUMIN 3.7 GM/DL (3.2-5.2); ALT/SGPT 34 U/L (12-78); BILIRUBIN,TOTAL 0.6 MG/DL (0.2-1.0); BLOOD UREA NITROGEN 21 MG/DL (7-18); CALCIUM LEVEL 9.1 MG/DL (8.5-10.1); CARBON DIOXIDE LEVEL 28 MEQ/L (21-32); CHLORIDE LEVEL 104 MEQ/L (98-107); CHOLESTEROL LEVEL 206 MG/DL (<200); CHOLESTEROL RISK RATIO 3.551 (<5); CREATININE FOR GFR 0.53 MG/DL (0.55-1.30); GLOMERULAR FILTRATION RATE > 60.0 (>51); GLUCOSE, FASTING 89 MG/DL (70-100); HDL CHOLESTEROL 58 MG/DL (>40); IRON (FE) 108 UG/DL (50-170); LDL CHOLESTEROL 130 MG/DL (<100); NON-HDL-C 148 MG/DL; POTASSIUM SERUM 4.1 MEQ/L (3.5-5.1); SODIUM LEVEL 139 MEQ/L (136-145); TOTAL PROTEIN 7.2 GM/DL (6.4-8.2); TRIGLYCERIDES LEVEL 91 MG/DL (<150)
[2019-09-12 12:33] LABS: TOTAL 25(OH) VITAMIN D 30.2 NG/ML (30.0-100.0)
[2019-09-12 12:34] LABS: FOLATE 20.1 NG/ML; VITAMIN B12 LEVEL 736 PG/ML
== END ==
LOC: M LAB 07:58
PROVIDERS: ATTEND Physician Assistant
DX: I10 Essential (primary) hypertension (principal); J22 Unspecified acute lower respiratory infection; E55.9 Vitamin D deficiency, unspecified; Z98.84 Bariatric surgery status; D69.6 Thrombocytopenia, unspecified; E11.69 Type 2 diabetes mellitus with other specified complication

== ENCOUNTER → 2019-10-25 | Outpatient (CLI) | payer OTHER ==
[2019-10-25 20:51] LABS: BASO % 0.1 % (0.0-1.0); HEMATOCRIT 40.8 % (36.0-47.0); HEMOGLOBIN 13.6 g/dl (12.0-15.5); LYMPH # 0.9 10^3/uL (1.5-5.0); LYMPH % 9.1 % (24.0-44.0); MEAN CORPUSCULAR HEMOGLOBIN 29.6 pg (27.0-33.0); MEAN CORPUSCULAR HGB CONC 33.3 g/dl (32.0-36.5); MEAN CORPUSCULAR VOLUME 88.7 fl (80.0-96.0); MONO # 0.8 10^3/uL (0.0-0.8); MONO % 7.2 % (0.0-5.0); NEUTROPHILS # 8.6 10^3/uL (1.5-8.5); PLATELET COUNT, AUTOMATED 183 10^3/uL (150-450); WHITE BLOOD COUNT 10.4 10^3/uL (4.0-10.0)
[2019-10-25 20:54] LABS: HEMATOCRIT 40.6 % (36.0-47.0)
[2019-10-25 21:19] LABS: HEMOGLOBIN A1c 5.5 %
[2019-10-25 21:27] LABS: ALBUMIN 3.9 GM/DL (3.2-5.2); ALT/SGPT 507 U/L (12-78); BILIRUBIN,TOTAL 0.4 MG/DL (0.2-1.0); BLOOD UREA NITROGEN 22 MG/DL (7-18); CALCIUM LEVEL 9.2 MG/DL (8.5-10.1); CARBON DIOXIDE LEVEL 30 MEQ/L (21-32); CHLORIDE LEVEL 108 MEQ/L (98-107); CREATININE FOR GFR 0.62 MG/DL (0.55-1.30); FERRITIN 253 NG/ML (8-252); GLOMERULAR FILTRATION RATE > 60.0 (>51); GLUCOSE, FASTING 125 MG/DL (70-100); IRON (FE) 58 UG/DL (50-170); MAGNESIUM LEVEL 2.5 MG/DL (1.8-2.4); PERCENT SATURATION 15.5 % (13.2-45.0); PHOSPHORUS LEVEL 3.1 MG/DL (2.5-4.9); POTASSIUM SERUM 3.9 MEQ/L (3.5-5.1); SODIUM LEVEL 141 MEQ/L (136-145); TOTAL IRON BINDING CAPACITY 373 UG/DL (250-450); TOTAL PROTEIN 7.4 GM/DL (6.4-8.2); VITAMIN B12 LEVEL 1610 PG/ML (247-911)
== END ==
LOC: M LAB 20:18
PROVIDERS: ATTEND Surgery
DX: K91.2 Postsurgical malabsorption, not elsewhere classified (principal); Z98.84 Bariatric surgery status; E55.9 Vitamin D deficiency, unspecified; Z86.39 Personal history of other endocrine, nutritional and metabolic disease

== ENCOUNTER → 2019-11-01 | Outpatient (CLI) | payer OTHER ==
[~2019-11-01] MED LIST changes: +GASTROGRAFIN SOLUTION 30ML (Q9963) As Ordered ONE; +ISOVUE-370 76% 100ML VIAL As Ordered ONE
--- NOTE | 2019-11-30 10:15 | REP ---
CONTRAST ENHANCED CT OF THE ABDOMEN AND PELVIS CLINICAL: Abdominal pain with history of gastric bypass surgery. TECHNIQUE: Axial contrast enhanced images from the lung bases to the pubic symphysis using oral (per protocol) and 100 cc Isovue-370 intravenous contrast material with coronal and sagittal reformations. COMPARISON: None. FINDINGS: Lung bases are clear. Visualized heart and pericardium normal. Liver includes 1.5 cm cyst along the left lobe. Spleen, pancreas, bilateral adrenal glands, and kidneys are normal. A 4 mm nonobstructing left renal calculus is suggested. Evidence for prior cholecystectomy noted. The enteric system demonstrates prior gastric bypass surgery. No evidence for bowel obstruction or acute inflammatory process. Normal terminal ileum and appendix identified in the right lower quadrant. Pelvis demonstrates normal bladder and age-appropriate uterus/adnexa. No pelvic fluid or ascites. No free air. No adenopathy. Abdominal aorta without aneurysm or dissection. Infrarenal IVC filter identified. Musculoskeletal structures demonstrate age-related changes. IMPRESSION: * Prior gastric bypass surgery, cholecystectomy, and IVC filter. * No acute abdominopelvic pathology appreciated. * Small 1.5 cm benign appearing hepatic cyst. MTDD
== END ==
LOC: M RAD 10:15
PROVIDERS: ATTEND Physician Assistant
DX: Z98.84 Bariatric surgery status (principal); Z90.49 Acquired absence of other specified parts of digestive tract; Z95.828 Presence of other vascular implants and grafts
CPT/HCPCS: 74177; Q9963; Q9967

== ENCOUNTER → 2019-11-30 | Outpatient (CLI) | payer OTHER ==
[~2019-11-30] MED LIST changes: -GASTROGRAFIN SOLUTION 30ML (Q9963) As Ordered ONE; -ISOVUE-370 76% 100ML VIAL As Ordered ONE
[2019-11-30 15:01] LABS: ALBUMIN 3.6 GM/DL (3.2-5.2); BILIRUBIN,DIRECT 0.3 MG/DL (0.0-0.2); BILIRUBIN,TOTAL 0.6 MG/DL (0.2-1.0); TOTAL PROTEIN 6.8 GM/DL (6.4-8.2)
== END ==
LOC: M LAB 14:06
PROVIDERS: ATTEND Physician Assistant
DX: R94.5 Abnormal results of liver function studies (principal); Z98.84 Bariatric surgery status

== ENCOUNTER → 2019-12-13 | Outpatient (CLI) | payer OTHER ==
[2019-12-13 17:42] LABS: APPEARANCE, URINE CLEAR (CLEAR); BACTERIA, URINE AUTO 1+ (NEGATIVE); BILIRUBIN, URINE AUTO NEGATIVE (NEGATIVE); BLOOD, URINE BLOOD NEGATIVE (NEGATIVE); COLOR, URINE YELLOW (YELLOW); GLUCOSE, URINE (UA) AUTO NEGATIVE (NEGATIVE); KETONE, URINE AUTO 1+ mg/dL (NEGATIVE); LEUKOCYTE ESTERASE, URINE AUTO NEGATIVE (NEGATIVE); NITRITE, URINE AUTO NEGATIVE (NEGATIVE); PROTEIN, URINE AUTO NEGATIVE (NEGATIVE); RBC, URINE AUTO 0 /HPF (0-3); SPECIFIC GRAVITY URINE AUTO 1.014 (1.002-1.035); SQUAMOUS EPITHELIAL CELL UR AU 1 /HPF (0-6); UROBILINOGEN, URINE AUTO 0.2 mg/dL (0.0-2.0); WBC, URINE AUTO 1 /HPF (0-3)
[2019-12-13 17:42] LABS: BASO % 0.6 % (0.0-1.0); EOS # 0.1 10^3/uL (0.0-0.5); EOS % 2.1 % (0.0-3.0); HEMATOCRIT 39.9 % (36.0-47.0); HEMOGLOBIN 12.7 g/dl (12.0-15.5); LYMPH # 1.7 10^3/uL (1.5-5.0); LYMPH % 33.2 % (24.0-44.0); MEAN CORPUSCULAR HEMOGLOBIN 28.8 pg (27.0-33.0); MEAN CORPUSCULAR HGB CONC 31.8 g/dl (32.0-36.5); MEAN CORPUSCULAR VOLUME 90.5 fl (80.0-96.0); MONO # 0.4 10^3/uL (0.0-0.8); MONO % 6.7 % (0.0-5.0); PLATELET COUNT, AUTOMATED 141 10^3/uL (150-450); RED BLOOD COUNT 4.41 10^6/uL (4.00-5.40); WHITE BLOOD COUNT 5.2 10^3/uL (4.0-10.0)
[2019-12-13 18:23] LABS: ALBUMIN 3.6 GM/DL (3.2-5.2); ALT/SGPT 373 U/L (12-78); BILIRUBIN,DIRECT 0.3 MG/DL (0.0-0.2); BILIRUBIN,TOTAL 0.7 MG/DL (0.2-1.0); BLOOD UREA NITROGEN 21 MG/DL (7-18); CALCIUM LEVEL 9.2 MG/DL (8.5-10.1); CARBON DIOXIDE LEVEL 30 MEQ/L (21-32); CHLORIDE LEVEL 104 MEQ/L (98-107); CREATININE FOR GFR 0.57 MG/DL (0.55-1.30); GLOMERULAR FILTRATION RATE > 60.0 (>51); GLUCOSE, FASTING 89 MG/DL (70-100); LIPASE 122 U/L (73-393); POTASSIUM SERUM 3.9 MEQ/L (3.5-5.1); SODIUM LEVEL 139 MEQ/L (136-145); TOTAL PROTEIN 6.8 GM/DL (6.4-8.2)
[2019-12-13 18:34] LABS: HEPATITIS B SURFACE ANTIGEN NEGATIVE (NEGATIVE)
[2019-12-13 19:00] LABS: HEPATITIS C VIRUS ABY INDEX 0.1 INDEX (<0.8)
[2019-12-13 19:01] LABS: HEPATITIS B CORE ANTIBODY IGM NEGATIVE (NEGATIVE)
[2019-12-13 19:02] LABS: HIV 1&2 SCREEN CENTAUR NEGATIVE (NEGATIVE)
[2019-12-13 19:03] LABS: HEPATITIS A ANTIBODY IGM NEGATIVE (NEGATIVE)
[2019-12-15 23:07] LABS: ANA (HEP2) Positive (.); ANTI-SMOOTH MUSCLE ANTIBODY 3 Units (0-19)
== END ==
LOC: M LAB 17:04
PROVIDERS: ATTEND Physician Assistant
DX: R74.8 Abnormal levels of other serum enzymes (principal)

== ENCOUNTER → 2019-12-22 | Outpatient (CLI) | payer OTHER ==
[2019-12-22 14:11] LABS: INR 0.8; PROTHROMBIN TIME 11.2 SECONDS (12.5-14.3)
[2019-12-22 14:12] LABS: PARTIAL THROMBOPLASTIN TIME 45.9 SECONDS (24.2-38.5)
[2019-12-22 14:18] LABS: ALBUMIN 3.6 GM/DL (3.2-5.2); BILIRUBIN,DIRECT 0.3 MG/DL (0.0-0.2); BILIRUBIN,TOTAL 0.6 MG/DL (0.2-1.0); PERCENT SATURATION 15.6 % (13.2-45.0); TOTAL PROTEIN 6.8 GM/DL (6.4-8.2)
[2019-12-23 21:07] LABS: ALPHA 1 ANTITRYPSIN 143 mg/dL (101-187); ANTI-MITOCHONDRIAL ANTIBODY <20.0 Units (0.0-20.0); CERULOPLASMIN 29.4 mg/dL (19.0-39.0); LIVER-KIDNEY MICROSOMAL ABY <20.1 Units (0.0-20.0); TISSUE TRANSGLUTAMINASE IgA <2 U/mL (0-3)
== END ==
LOC: M LAB 13:00
PROVIDERS: ATTEND Physician Assistant
DX: R74.8 Abnormal levels of other serum enzymes (principal)

== ENCOUNTER → 2020-01-17 | Outpatient (CLI) | payer OTHER ==
[~2020-01-17] MED LIST changes: +BIMA01SOL OU; +OMEP-218 PO
[2020-01-17 12:57] LABS: ALBUMIN 3.2 GM/DL (3.2-5.2); BILIRUBIN,DIRECT 2.5 MG/DL (0.0-0.2); BILIRUBIN,TOTAL 3.5 MG/DL (0.2-1.0); TOTAL PROTEIN 6.7 GM/DL (6.4-8.2)
--- NOTE | 2020-01-18 03:33 | REP ---
INDICATION: DYSPNEA COMPARISON: 02/29/2016 TECHNIQUE: PA and lateral. FINDINGS: The mediastinum and cardiac silhouette are normal. The lung donis demonstrate diffusely increased interstitial markings which may reflect chronic change versus/chronic reactive airway disease. Clinical correlation is required. No focal consolidation or effusion. No pneumothorax. Skeletal structures intact. IMPRESSION: Increased interstitial markings suggest chronic change although superimposed bronchitis/reactive airway disease cannot be excluded. <Electronically signed by Jarrett Doss > 01/18/20 [id number]
[2020-01-19 19:07] LABS: EBV AB TO NUCLEAR ANTIGEN >600.0 U/mL (0.0-17.9); EBV VIRAL CAPSID AG IgG >600.0 U/mL (0.0-17.9); EBV VIRAL CAPSID AG IgM <36.0 U/mL (0.0-35.9); HSV IgM TYPES 1&2 <0.91 Ratio (0.00-0.90)
== END ==
LOC: M LAB 10:23
PROVIDERS: ATTEND Specialist
DX: R06.00 Dyspnea, unspecified (principal); R94.5 Abnormal results of liver function studies; R93.89 Abnormal findings on diagnostic imaging of other specified body structures

== ENCOUNTER 2020-01-19 14:49 | Emergency (ER) | payer OTHER ==
[~2020-01-19] VITALS: Ht 172.7 cm; Wt 130.5 kg
[~2020-01-19 14:49] MED LIST changes: -BIMA01SOL OU; -OMEP-218 PO
[2020-01-19] MEDS ORDERED: OMEP-218 PO (15:13)
[2020-01-19] MEDS ORDERED: BIMA01SOL OU (15:13)
[2020-01-19 15:41] LABS: BASO % 0.3 % (0.0-1.0); EOS # 0.1 10^3/uL (0.0-0.5); EOS % 0.8 % (0.0-3.0); HEMATOCRIT 39.5 % (36.0-47.0); HEMOGLOBIN 12.6 g/dl (12.0-15.5); LYMPH # 1.4 10^3/uL (1.5-5.0); LYMPH % 21.7 % (24.0-44.0); MEAN CORPUSCULAR HEMOGLOBIN 29.4 pg (27.0-33.0); MEAN CORPUSCULAR HGB CONC 31.9 g/dl (32.0-36.5); MEAN CORPUSCULAR VOLUME 92.3 fl (80.0-96.0); MONO # 0.7 10^3/uL (0.0-0.8); MONO % 11.3 % (0.0-5.0); NEUTROPHILS # 4.1 10^3/uL (1.5-8.5); NEUTROPHILS % 65.6 % (36.0-66.0); PLATELET COUNT, AUTOMATED 153 10^3/uL (150-450); RED BLOOD COUNT 4.28 10^6/uL (4.00-5.40); WHITE BLOOD COUNT 6.3 10^3/uL (4.0-10.0)
[2020-01-19 16:14] LABS: ALBUMIN 3.2 GM/DL (3.2-5.2); ALT/SGPT 293 U/L (12-78); BILIRUBIN,DIRECT 3.1 MG/DL (0.0-0.2); BILIRUBIN,TOTAL 4.1 MG/DL (0.2-1.0); BLOOD UREA NITROGEN 17 MG/DL (7-18); CARBON DIOXIDE LEVEL 28 MEQ/L (21-32); CHLORIDE LEVEL 102 MEQ/L (98-107); CK-MB VALUE MASS < 1.0 NG/ML (<3.6); CPK CREATINE PHOSPHOKINASE 47 U/L (26-192); CREATININE FOR GFR 0.61 MG/DL (0.55-1.30); GLOMERULAR FILTRATION RATE > 60.0 (>51); GLUCOSE, FASTING 83 MG/DL (70-100); LIPASE 154 U/L (73-393); MB/CK RELATIVE INDEX 2.13 (< OR =4); NT-PRO BNP 245 PG/ML (<125); POTASSIUM SERUM 3.8 MEQ/L (3.5-5.1); SODIUM LEVEL 137 MEQ/L (136-145); TOTAL PROTEIN 7.1 GM/DL (6.4-8.2); TROPONIN I < 0.02 NG/ML (< 0.10)
[2020-01-19] MEDS ORDERED: NS 1,000 ML IV ONE (17:30)
[2020-01-19 22:40] VITALS: BP 154/76
--- NOTE | 2020-01-20 21:30 | ECGEPIP ---
[facility] - ED Test Date: 2020-01-19 Pat Name: CHETAN FERNANDEZ Department: Room: - Gender: Female Crime Scene Specialist: MILAGROS : 1965 Requested By: MECHELLE EDGE PA-C Order Number: [id number] Reading MD: Nimo Arzola Measurements Intervals [place] Rate: 71 P: 1 [place]: 166 QRS: 18 QRSD: 96 T: 16 QT: 384 QTc: 419 Interpretive Statements SINUS RHYTHM DECREASED RATE 02/22/16 Electronically Signed on 01-20-2020 21:29:44 EST by Nimo Arzola
== END 2020-01-19 22:45 | disposition short-term general hospital (02) ==
LOC: M ED 14:49
DX: K80.50 Calculus of bile duct without cholangitis or cholecystitis without obstruction (principal); R50.9 Fever, unspecified; R11.2 Nausea with vomiting, unspecified; R63.0 Anorexia; I10 Essential (primary) hypertension; K21.9 Gastro-esophageal reflux disease without esophagitis; J45.909 Unspecified asthma, uncomplicated; F41.9 Anxiety disorder, unspecified; Z86.718 Personal history of other venous thrombosis and embolism; Z98.84 Bariatric surgery status; Z88.0 Allergy status to penicillin; Z91.040 Latex allergy status; Z79.899 Other long term (current) drug therapy; Z79.51 Long term (current) use of inhaled steroids; Z79.82 Long term (current) use of aspirin
CPT/HCPCS: 80048; 80076; 81001; 82550; 82553; 83605; 83690; 83880; 84484; 85025; 87040; 87086; 93005; 96360; 99284; U0002

== ENCOUNTER 2020-02-15 09:20 | Emergency (ER) | payer OTHER ==
[~2020-02-15] VITALS: Ht 172.7 cm; Wt 131.3 kg
[~2020-02-15 09:20] MED LIST changes: +BIMA01SOL OU; +OMEP-218 PO
--- NOTE | 2020-02-15 10:02 | REP ---
INDICATION: DYSPNEA/COUGH. COMPARISON: PA and lateral chest dated 03/01/2016 and PA and lateral chest dated 01/17/2020. TECHNIQUE: Upright PA and lateral chest. FINDINGS: There is mild chronic diffuse interstitial coarsening compatible with chronic lung disease. There are no focal infiltrates or pleural effusions. There are no lung masses or nodules. Cardiac size is normal. The james, mediastinum, and skeletal structures are unremarkable. There is a right upper extremity PICC line with the tip in the right atrium in satisfactory location as an interval change. IMPRESSION: Chronic mild interstitial coarsening. No acute cardiopulmonary findings. Right upper extremity PICC line as described. <Electronically signed by Estrada Osman > 02/15/20 0999
--- NOTE | 2020-02-15 10:37 | REP ---
INDICATION: ?ascites. COMPARISON: None. TECHNIQUE: Limited abdominal ultrasound for ascites. FINDINGS: Transabdominal ultrasound of all 4 abdominal quadrants is performed. No ascites is identified. IMPRESSION: No abdominal ascites is identified. <Electronically signed by Estrada Osman > 02/15/20 [id number]
--- NOTE | 2020-02-15 10:40 | REP ---
INDICATION: swelling ?dvt COMPARISON: 05/17/2017. TECHNIQUE: Doppler duplex ultrasound of the bilateral lower extremity deep veins. FINDINGS: The deep veins demonstrate normal compression, normal Doppler color flow and normal Doppler waveforms with respiration augmentation from the popliteal veins to the common femoral veins bilaterally. The study is technically difficult because of patient body habitus. IMPRESSION: There is no deep vein thrombus in the right or left lower extremities. <Electronically signed by Estrada Osman > 02/15/20 1037
[2020-02-15 10:51] LABS: BASO # 0.1 10^3/uL (0.0-0.2); BASO % 0.8 % (0.0-1.0); EOS # 0.2 10^3/uL (0.0-0.5); EOS % 2.3 % (0.0-3.0); HEMATOCRIT 33.1 % (36.0-47.0); HEMOGLOBIN 10.2 g/dl (12.0-15.5); LYMPH # 1.1 10^3/uL (1.5-5.0); LYMPH % 16.9 % (24.0-44.0); MEAN CORPUSCULAR HEMOGLOBIN 28.9 pg (27.0-33.0); MEAN CORPUSCULAR HGB CONC 30.8 g/dl (32.0-36.5); MEAN CORPUSCULAR VOLUME 93.8 fl (80.0-96.0); MONO # 0.4 10^3/uL (0.0-0.8); MONO % 6.4 % (0.0-5.0); NEUTROPHILS # 4.7 10^3/uL (1.5-8.5); NEUTROPHILS % 72.4 % (36.0-66.0); PLATELET COUNT, AUTOMATED 192 10^3/uL (150-450); RED BLOOD COUNT 3.53 10^6/uL (4.00-5.40); WHITE BLOOD COUNT 6.6 10^3/uL (4.0-10.0)
[2020-02-15 11:22] LABS: ALBUMIN 2.6 GM/DL (3.2-5.2); ALT/SGPT 39 U/L (12-78); BILIRUBIN,DIRECT 0.9 MG/DL (0.0-0.2); BILIRUBIN,TOTAL 0.9 MG/DL (0.2-1.0); BLOOD UREA NITROGEN 8 MG/DL (7-18); CALCIUM LEVEL 9.2 MG/DL (8.5-10.1); CARBON DIOXIDE LEVEL 30 MEQ/L (21-32); CHLORIDE LEVEL 108 MEQ/L (98-107); CREATININE FOR GFR 0.41 MG/DL (0.55-1.30); GLOMERULAR FILTRATION RATE > 60.0 (>51); GLUCOSE, FASTING 99 MG/DL (70-100); POTASSIUM SERUM 3.9 MEQ/L (3.5-5.1); SODIUM LEVEL 141 MEQ/L (136-145); TOTAL PROTEIN 6.6 GM/DL (6.4-8.2)
[2020-02-15] MEDS ORDERED: LASI20TA3 PO (12:16)
[2020-02-15 12:53] VITALS: BP 149/76
--- NOTE | 2020-02-16 13:16 | ECGEPIP ---
[facility] - ED Test Date: 2020-02-15 Pat Name: CHETAN FERNANDEZ Department: Room: - Gender: Female Clinical Account Specialist: TC : 1965 Requested By: Nimo Arzola Order Number: [id number] Reading MD: Twan Sanchez Measurements Intervals [place] Rate: 66 P: 3 [place]: 163 QRS: 19 QRSD: 85 T: 21 QT: 369 QTc: 388 Interpretive Statements SINUS RHYTHM SIMILAR TO 01/19/20 Electronically Signed on 02-16-2020 13:16:12 EST by Twan Sanchez
== END 2020-02-15 12:55 | disposition home or self-care (01) ==
LOC: M ED 09:20
DX: R60.0 Localized edema (principal); J45.909 Unspecified asthma, uncomplicated; K21.9 Gastro-esophageal reflux disease without esophagitis; E66.9 Obesity, unspecified; Z79.899 Other long term (current) drug therapy; Z79.82 Long term (current) use of aspirin; Z88.0 Allergy status to penicillin; Z91.040 Latex allergy status; Z87.891 Personal history of nicotine dependence

== ENCOUNTER → 2020-02-20 | Outpatient (REF) | payer OTHER ==
[~2020-02-20] MED LIST changes: +LASI20TA3 PO; +OXYC-517 PO
[2020-02-20 17:57] LABS: BASO % 0.5 % (0.0-1.0); EOS # 0.2 10^3/uL (0.0-0.5); EOS % 3.9 % (0.0-3.0); HEMATOCRIT 37.2 % (36.0-47.0); HEMOGLOBIN 11.4 g/dl (12.0-15.5); LYMPH # 1.6 10^3/uL (1.5-5.0); LYMPH % 27.7 % (24.0-44.0); MEAN CORPUSCULAR HEMOGLOBIN 28.4 pg (27.0-33.0); MEAN CORPUSCULAR HGB CONC 30.6 g/dl (32.0-36.5); MEAN CORPUSCULAR VOLUME 92.5 fl (80.0-96.0); MONO # 0.4 10^3/uL (0.0-0.8); MONO % 6.5 % (0.0-5.0); NEUTROPHILS # 3.5 10^3/uL (1.5-8.5); NEUTROPHILS % 60.9 % (36.0-66.0); PLATELET COUNT, AUTOMATED 220 10^3/uL (150-450); RED BLOOD COUNT 4.02 10^6/uL (4.00-5.40); WHITE BLOOD COUNT 5.7 10^3/uL (4.0-10.0)
[2020-02-20 18:13] LABS: ALBUMIN 2.9 GM/DL (3.2-5.2); ALT/SGPT 33 U/L (12-78); BILIRUBIN,TOTAL 0.7 MG/DL (0.2-1.0); BLOOD UREA NITROGEN 19 MG/DL (7-18); CALCIUM LEVEL 8.6 MG/DL (8.5-10.1); CARBON DIOXIDE LEVEL 30 MEQ/L (21-32); CHLORIDE LEVEL 105 MEQ/L (98-107); CREATININE FOR GFR 0.49 MG/DL (0.55-1.30); GLOMERULAR FILTRATION RATE > 60.0 (>51); GLUCOSE, FASTING 108 MG/DL (70-100); POTASSIUM SERUM 4.2 MEQ/L (3.5-5.1); SODIUM LEVEL 140 MEQ/L (136-145); TOTAL PROTEIN 6.5 GM/DL (6.4-8.2)
== END ==
LOC: M LAB REF 16:46
DX: K83.09 Other cholangitis (principal)

== ENCOUNTER 2020-02-26 19:36 | Emergency (ER) | payer OTHER ==
[~2020-02-26] VITALS: Ht 172.7 cm; Wt 125.9 kg
[~2020-02-26 19:36] MED LIST changes: -OXYC-517 PO
[2020-02-26] MEDS ORDERED: OXYC-517 PO (20:28)
[2020-02-26] MEDS ORDERED: NS 1,000 ML IV ONE (21:00)
[2020-02-26] MEDS ORDERED: MORPHINE 4 MG/ML 1ML VIAL/SYRINGE (J2270) IV PRN (21:00)
[2020-02-26] MEDS ORDERED: METOCLOPRAMIDE INJ 10MG/2ML VIAL (J2765 PER 1) IV ONE (21:00)
[2020-02-26 21:10] LABS: BASO % 0.6 % (0.0-1.0); EOS # 0.2 10^3/uL (0.0-0.5); EOS % 3.7 % (0.0-3.0); HEMOGLOBIN 12.3 g/dl (12.0-15.5); LYMPH # 1.9 10^3/uL (1.5-5.0); LYMPH % 30.4 % (24.0-44.0); MEAN CORPUSCULAR HEMOGLOBIN 28.4 pg (27.0-33.0); MEAN CORPUSCULAR HGB CONC 31.5 g/dl (32.0-36.5); MEAN CORPUSCULAR VOLUME 90.1 fl (80.0-96.0); MONO # 0.6 10^3/uL (0.0-0.8); NEUTROPHILS # 3.5 10^3/uL (1.5-8.5); NEUTROPHILS % 55.8 % (36.0-66.0); PLATELET COUNT, AUTOMATED 217 10^3/uL (150-450); RED BLOOD COUNT 4.33 10^6/uL (4.00-5.40); WHITE BLOOD COUNT 6.2 10^3/uL (4.0-10.0)
[2020-02-26 21:28] LABS: ALBUMIN 3.2 GM/DL (3.2-5.2); ALT/SGPT 39 U/L (12-78); BILIRUBIN,DIRECT 0.6 MG/DL (0.0-0.2); BILIRUBIN,TOTAL 0.8 MG/DL (0.2-1.0); BLOOD UREA NITROGEN 17 MG/DL (7-18); CALCIUM LEVEL 8.9 MG/DL (8.5-10.1); CARBON DIOXIDE LEVEL 28 MEQ/L (21-32); CHLORIDE LEVEL 105 MEQ/L (98-107); CK-MB VALUE MASS < 1.0 NG/ML (<3.6); CPK CREATINE PHOSPHOKINASE 27 U/L (26-192); CREATININE FOR GFR 0.52 MG/DL (0.55-1.30); GLOMERULAR FILTRATION RATE > 60.0 (>51); GLUCOSE, FASTING 81 MG/DL (70-100); LIPASE 246 U/L (73-393); POTASSIUM SERUM 3.9 MEQ/L (3.5-5.1); SODIUM LEVEL 141 MEQ/L (136-145); TOTAL PROTEIN 7.2 GM/DL (6.4-8.2); TROPONIN I < 0.02 NG/ML (< 0.10)
[2020-02-26] MEDS: GASTROGRAFIN SOLUTION 30ML PO SCH ×2 (21:30→22:00)
[2020-02-26] MEDS ORDERED: ISOVUE-370 76% 100ML VIAL As Ordered ONE (22:47)
--- NOTE | 2020-02-26 23:50 | REPVR ---
PROCEDURE INFORMATION: Exam: CT Abdomen And Pelvis With Contrast Exam date and time: 02/26/2020 10:56 PM Age: 54 years old Clinical indication: Abdominal pain; Additional info: Ruq abd pain, recent biliary drain TECHNIQUE: Imaging protocol: Computed tomography of the abdomen and pelvis with intravenous contrast. Radiation optimization: All CT scans at this facility use at least one of these dose optimization techniques: automated exposure control; mA and/or kV adjustment per patient size (includes targeted exams where dose is matched to clinical indication); or iterative reconstruction. Contrast material: ISO 370; Contrast volume: 100 ml; Contrast route: INTRAVENOUS (IV); COMPARISON: CT ABD PELVIS WITH CONTRAST 11/01/2019 11:35 AM FINDINGS: Tubes, catheters and devices: There is an internal/external biliary drain with the pigtail in the duodenal sweep. Liver: There is patchy decreased enhancement of the liver around the tract of the biliary drain through the liver. No associated collection is noted. The liver at mid clavicular line measures 17.3 cm. Gallbladder and bile ducts: Pneumobilia is noted which is new. Status post cholecystectomy. There is a long residual cystic duct remnant with a relatively low insertion containing foci of gas. Pancreas: Normal. No ductal dilation. Spleen: The spleen measures 12.1 cm. Adrenal glands: Normal. No mass. Kidneys and ureters: Normal. No hydronephrosis. Stomach and bowel: There has been gastric bypass with collapse of the bypassed stomach. Mild stool throughout much of the colon. Appendix: A normal appendix is seen. Intraperitoneal space: Unremarkable. No free air. No significant fluid collection. Vasculature: There is an IVC filter in position. Lymph nodes: Unremarkable. No enlarged lymph nodes. Urinary bladder: Unremarkable as visualized. Reproductive: Unremarkable as visualized. Bones/joints: Unremarkable. No acute fracture. Soft tissues: Small ventral wall hernias with a broad-based epigastric hernia containing a short segment of small bowel and some other smaller fat filled hernias particularly in the left periumbilical region. There is a midline broad-based ventral wall hernia in the pelvis. Other findings: Kilo-en-Y in the left mid abdomen. IMPRESSION: 1. Interval placement of an internal/external biliary drain since 11/01/2019. There is pneumobilia and patchy decreased enhancement around the tract through the liver. 2. Status post cholecystectomy and gastric bypass. 3. There is an IVC filter in position which is similar. 4. Mild hepatomegaly. Electronically signed by: Grady Tyson On 02/26/2020 23:49:58 PM
[2020-02-27 01:30] VITALS: BP 166/97
== END 2020-02-27 01:40 | disposition home or self-care (01) ==
LOC: M ED 19:36
DX: G89.18 Other acute postprocedural pain (principal); R10.11 Right upper quadrant pain; R11.0 Nausea; Z96.89 Presence of other specified functional implants; Z98.84 Bariatric surgery status; Z88.0 Allergy status to penicillin; Z91.040 Latex allergy status; Z79.899 Other long term (current) drug therapy; Z79.51 Long term (current) use of inhaled steroids; Z79.82 Long term (current) use of aspirin
CPT/HCPCS: 74177; 80048; 80076; 82550; 82553; 83690; 84484; 85025; 93041; 96361; 96374; 96375; 99285; J2270; J2765; Q9963; Q9967

== ENCOUNTER → 2020-04-03 | Outpatient (REF) | payer OTHER ==
[~2020-04-03] MED LIST changes: +OXYC-517 PO
[2020-04-03 16:38] LABS: APPEARANCE, URINE HAZY (CLEAR); BACTERIA, URINE AUTO NEGATIVE (NEGATIVE); BILIRUBIN, URINE AUTO NEGATIVE (NEGATIVE); BLOOD, URINE BLOOD NEGATIVE (NEGATIVE); COLOR, URINE YELLOW (YELLOW); GLUCOSE, URINE (UA) AUTO NEGATIVE (NEGATIVE); KETONE, URINE AUTO NEGATIVE (NEGATIVE); LEUKOCYTE ESTERASE, URINE AUTO TRACE (NEGATIVE); MUCUS, URINE SMALL (NEGATIVE); NITRITE, URINE AUTO NEGATIVE (NEGATIVE); PROTEIN, URINE AUTO NEGATIVE (NEGATIVE); RBC, URINE AUTO 1 /HPF (0-3); SQUAMOUS EPITHELIAL CELL UR AU 6 /HPF (0-6); UROBILINOGEN, URINE AUTO 0.2 mg/dL (0.0-2.0); WBC, URINE AUTO 2 /HPF (0-3)
== END ==
LOC: M SFHCCLAY 11:55
PROVIDERS: ATTEND Physician Assistant
DX: R35.0 Frequency of micturition (principal)

== ENCOUNTER → 2020-04-10 | Outpatient (REF) | payer OTHER ==
[2020-04-10 16:25] LABS: BASO # 0.1 10^3/uL (0.0-0.2); BASO % 0.8 % (0.0-1.0); EOS # 0.2 10^3/uL (0.0-0.5); EOS % 2.5 % (0.0-3.0); HEMATOCRIT 37.5 % (36.0-47.0); HEMOGLOBIN 11.5 g/dl (12.0-15.5); LYMPH # 1.7 10^3/uL (1.5-5.0); LYMPH % 21.8 % (24.0-44.0); MEAN CORPUSCULAR HEMOGLOBIN 28.4 pg (27.0-33.0); MEAN CORPUSCULAR HGB CONC 30.7 g/dl (32.0-36.5); MEAN CORPUSCULAR VOLUME 92.6 fl (80.0-96.0); MONO # 0.6 10^3/uL (0.0-0.8); MONO % 7.5 % (0.0-5.0); NEUTROPHILS # 5.1 10^3/uL (1.5-8.5); NEUTROPHILS % 66.7 % (36.0-66.0); PLATELET COUNT, AUTOMATED 257 10^3/uL (150-450); RED BLOOD COUNT 4.05 10^6/uL (4.00-5.40); WHITE BLOOD COUNT 7.7 10^3/uL (4.0-10.0)
[2020-04-10 16:39] LABS: ALBUMIN 2.8 GM/DL (3.2-5.2); ALT/SGPT 11 U/L (12-78); BILIRUBIN,TOTAL 0.3 MG/DL (0.2-1.0); BLOOD UREA NITROGEN 12 MG/DL (7-18); CALCIUM LEVEL 9.1 MG/DL (8.5-10.1); CARBON DIOXIDE LEVEL 32 MEQ/L (21-32); CHLORIDE LEVEL 107 MEQ/L (98-107); CREATININE FOR GFR 0.54 MG/DL (0.55-1.30); GLOMERULAR FILTRATION RATE > 60.0 (>51); GLUCOSE, FASTING 83 MG/DL (70-100); POTASSIUM SERUM 4.1 MEQ/L (3.5-5.1); SODIUM LEVEL 143 MEQ/L (136-145); TOTAL PROTEIN 6.4 GM/DL (6.4-8.2)
== END ==
LOC: M SFHCCLAY 11:30
PROVIDERS: ATTEND Physician Assistant
DX: R60.0 Localized edema (principal)

== ENCOUNTER 2020-06-08 13:24 | Emergency (ER) | payer OTHER ==
[~2020-06-08] VITALS: Ht 172.7 cm; Wt 127.3 kg
[2020-06-08 13:24] VITALS: BP 143/79
[2020-06-08] MEDS ORDERED: FLUTISP (13:31)
[2020-06-08] MEDS ORDERED: AZIT200S30 (13:31)
--- NOTE | 2020-06-08 14:28 | REP ---
INDICATION: fall onto R hand, bruising over 5th metatarsal COMPARISON: None. TECHNIQUE: Four views right hand. FINDINGS: There is no evidence of acute fracture, dislocation, or intrinsic bone disease.A linear 2 mm metallic foreign body is seen in the soft tissues of the thumb. IMPRESSION: No fracture or dislocation. <Electronically signed by Estrada Baker > 06/08/20 2329
--- NOTE | 2020-06-08 14:37 | REP ---
INDICATION: contusion pain over R temporal after fall. COMPARISON: None. TECHNIQUE: Axial CT images with multiplanar reformations prep FINDINGS: No acute bleed or fracture. Ventricles, cisterns and sulci within normal limits. No mass effect or midline shift. No abnormal fluid collections. Fluid levels are seen in the maxillary sinuses bilaterally. The ethmoid sinuses and sphenoid sinuses are obscured. Mastoid air cells are clear. IMPRESSION: 1. No posttraumatic findings. 2. Findings of extensive [id number]-zx-wfrlzsg sinusitis. <Electronically signed by Diogo Leslie > 06/08/20 0025
== END 2020-06-08 15:08 | disposition home or self-care (01) ==
LOC: M ED 13:24
DX: S00.03XA Contusion of scalp, initial encounter (principal); M79.641 Pain in right hand; W01.0XXA Fall on same level from slipping, tripping and stumbling without subsequent striking against object, initial encounter; Y92.512 Supermarket, store or market as the place of occurrence of the external cause; Y93.9 Activity, unspecified; Y99.9 Unspecified external cause status; J32.9 Chronic sinusitis, unspecified; I10 Essential (primary) hypertension; K21.9 Gastro-esophageal reflux disease without esophagitis; Z86.718 Personal history of other venous thrombosis and embolism; Z88.0 Allergy status to penicillin; Z91.040 Latex allergy status; Z79.82 Long term (current) use of aspirin; Z79.899 Other long term (current) drug therapy

== ENCOUNTER → 2020-06-15 | Outpatient (CLI) | payer OTHER ==
[~2020-06-15] MED LIST changes: +AZIT200S30; +FLUTISP
--- NOTE | 2020-06-15 15:32 | REPMRS ---
Patient History The patient states she had a clinical breast exam in 01/19 Patient is postmenopausal. Family history of ovarian cancer in maternal grandmother. Benign radio exam breast specimen of the left breast, March 19, 2012. Benign stereotatic loc for ea lesion of the left breast, March 19, 2012. Digital Woman Screen Mammo: June 15, 2020 - Exam #: [id number] Bilateral CC and MLO view(s) were taken. Technologist: Carol Ann Brizuela, Technologist Prior study comparison: May 13, 2019, bilateral digital woman screen mammo performed at [facility]. January 14, 2018, bilateral digital mammo screening bilat, performed at [facility]. January 15, 2012, bilateral digital woman screen mammo, performed at [facility]. FINDINGS: There are scattered fibroglandular densities. The Volpara volumetric breast density category is:B. There is a needle biopsy marker clip in the left medial breast. Anterior to this, agin noted is a stable nodule containing some calcifications unchanged from the 2011 prior study. There has been no change in the appearance of the mammogram from the prior studies. There is a mild amount of scattered fibroglandular density which is fairly symmetric. There is no interval development of dominant mass, architectural distortion, or grouped microcalcification suggestive of malignancy. 3-D tomosynthesis shows no additional findings. Assessment: BI-RADS/ACR category 2 mammogram. Benign Findings. Recommendation Routine screening mammogram of both breasts in 1 year (for women over age 40). This patient's [facility] Lifetime Breast Cancer Risk is estimated at 8.9 %. This mammogram was interpreted with the aid of an FDA-approved computer-aided dectection system. Electronically Signed By: Uriel Sanz MD 06/15/20 0599
== END ==
LOC: M WHC 14:29
PROVIDERS: ATTEND Physician Assistant
DX: Z12.31 Encounter for screening mammogram for malignant neoplasm of breast (principal)

== ENCOUNTER → 2020-06-18 | Outpatient (CLI) | payer OTHER ==
[2020-06-18 07:20] LABS: BASO % 0.6 % (0.0-1.0); EOS # 0.1 10^3/uL (0.0-0.5); EOS % 2.3 % (0.0-3.0); HEMOGLOBIN 12.6 g/dl (12.0-15.5); LYMPH # 1.4 10^3/uL (1.5-5.0); LYMPH % 28.6 % (24.0-44.0); MEAN CORPUSCULAR HEMOGLOBIN 28.6 pg (27.0-33.0); MEAN CORPUSCULAR HGB CONC 31.5 g/dl (32.0-36.5); MEAN CORPUSCULAR VOLUME 90.9 fl (80.0-96.0); MONO # 0.3 10^3/uL (0.0-0.8); MONO % 7.2 % (2.0-8.0); NEUTROPHILS # 2.9 10^3/uL (1.5-8.5); NEUTROPHILS % 60.9 % (36.0-66.0); PLATELET COUNT, AUTOMATED 155 10^3/uL (150-450); WHITE BLOOD COUNT 4.7 10^3/uL (4.0-10.0)
[2020-06-18 07:55] LABS: CREATININE, URINE 21.1 MG/DL; MALB URINE SIEMENS 8.1 MG/L; MAU/CREAT RATIO 38.3 MCG/MG (0.0-30.0)
[2020-06-18 07:56] LABS: ALBUMIN 3.5 GM/DL (3.2-5.2); ALT/SGPT 26 U/L (12-78); BILIRUBIN,TOTAL 0.6 MG/DL (0.2-1.0); BLOOD UREA NITROGEN 18 MG/DL (7-18); CALCIUM LEVEL 9.4 MG/DL (8.5-10.1); CARBON DIOXIDE LEVEL 31 MEQ/L (21-32); CHLORIDE LEVEL 106 MEQ/L (98-107); CHOLESTEROL LEVEL 214 MG/DL (<200); CHOLESTEROL RISK RATIO 3.057 (<5); CREATININE FOR GFR 0.53 MG/DL (0.55-1.30); GLOMERULAR FILTRATION RATE > 60.0 (>51); GLUCOSE, FASTING 93 MG/DL (70-100); HDL CHOLESTEROL 70 MG/DL (>40); LDL CHOLESTEROL 130 MG/DL (<100); NON-HDL-C 144 MG/DL; POTASSIUM SERUM 3.8 MEQ/L (3.5-5.1); SODIUM LEVEL 140 MEQ/L (136-145); TOTAL PROTEIN 6.9 GM/DL (6.4-8.2); TRIGLYCERIDES LEVEL 69 MG/DL (<150)
[2020-06-18 10:47] LABS: HEMOGLOBIN A1c 4.9 %
[2020-06-18 14:58] LABS: TOTAL 25(OH) VITAMIN D 33.8 NG/ML (30.0-100.0)
== END ==
LOC: M LAB 06:21
PROVIDERS: ATTEND Physician Assistant
DX: I10 Essential (primary) hypertension (principal)

== ENCOUNTER → 2020-06-18 | Outpatient (CLI) | payer OTHER ==
--- NOTE | 2020-06-18 13:27 | REP ---
INDICATION: M54.2 FALL SUBSEQUENT CERVICALGIA COMPARISON: None. TECHNIQUE: AP, lateral, flexion/extension, bilateral oblique, and open-mouth views. FINDINGS: Alignment and lordosis maintained. No acute fracture/compression injury or subluxation. Advanced multilevel degenerative changes include endplate sclerosis, disc space narrowing, osteophytosis and facet hypertrophy. Open mouth view demonstrates normal C1-C2 articulation and odontoid process. IMPRESSION: Advanced multilevel degenerative spondylosis. <Electronically signed by Jarrett Doss > 06/18/20 [id number]
== END ==
LOC: M CLY 12:55
PROVIDERS: ATTEND Physician Assistant
DX: M54.2 Cervicalgia (principal)

== ENCOUNTER → 2020-09-23 | Outpatient (CLI) | payer OTHER ==
[2020-09-23 10:25] LABS: BASO % 0.6 % (0.0-1.0); EOS # 0.2 10^3/uL (0.0-0.5); EOS % 3.6 % (0.0-3.0); HEMATOCRIT 42.1 % (36.0-47.0); HEMOGLOBIN 13.3 g/dl (12.0-15.5); LYMPH # 1.6 10^3/uL (1.5-5.0); LYMPH % 30.8 % (24.0-44.0); MEAN CORPUSCULAR HEMOGLOBIN 28.7 pg (27.0-33.0); MEAN CORPUSCULAR HGB CONC 31.6 g/dl (32.0-36.5); MEAN CORPUSCULAR VOLUME 90.7 fl (80.0-96.0); MONO # 0.4 10^3/uL (0.0-0.8); MONO % 8.1 % (2.0-8.0); NEUTROPHILS % 56.5 % (36.0-66.0); PLATELET COUNT, AUTOMATED 153 10^3/uL (150-450); RED BLOOD COUNT 4.64 10^6/uL (4.00-5.40); WHITE BLOOD COUNT 5.3 10^3/uL (4.0-10.0)
[2020-09-23 10:36] LABS: HEMOGLOBIN A1c 5.4 %
[2020-09-23 10:52] LABS: MALB URINE SIEMENS 20.8 MG/L
[2020-09-23 11:04] LABS: ALBUMIN 3.8 GM/DL (3.2-5.2); ALT/SGPT 30 U/L (12-78); BILIRUBIN,TOTAL 0.7 MG/DL (0.2-1.0); BLOOD UREA NITROGEN 18 MG/DL (7-18); CARBON DIOXIDE LEVEL 31 MEQ/L (21-32); CHLORIDE LEVEL 106 MEQ/L (98-107); CHOLESTEROL LEVEL 215 MG/DL (<200); CHOLESTEROL RISK RATIO 3.307 (<5); CREATININE FOR GFR 0.52 MG/DL (0.55-1.30); GLOMERULAR FILTRATION RATE > 60.0 (>51); GLUCOSE, FASTING 85 MG/DL (70-100); HDL CHOLESTEROL 65 MG/DL (>40); LDL CHOLESTEROL 129 MG/DL (<100); NON-HDL-C 150 MG/DL; POTASSIUM SERUM 4.1 MEQ/L (3.5-5.1); SODIUM LEVEL 141 MEQ/L (136-145); TOTAL PROTEIN 7.2 GM/DL (6.4-8.2); TRIGLYCERIDES LEVEL 106 MG/DL (<150)
[2020-09-24 10:52] LABS: TOTAL 25(OH) VITAMIN D 28.2 NG/ML (30.0-100.0)
== END ==
LOC: M LAB 09:47
PROVIDERS: ATTEND Physician Assistant
DX: I10 Essential (primary) hypertension (principal)

== ENCOUNTER → 2021-02-07 | Outpatient (CLI) | payer OTHER ==
--- NOTE | 2021-02-08 04:55 | REP ---
INDICATION: PNEUMONIA, UNSPECIFIED ORGANISM COMPARISON: 02/15/2020 TECHNIQUE: PA and lateral. FINDINGS: Subtle diffuse bilateral airspace disease primarily involving the mid to lower lobes and left perihilar region is suspected and requires correlation. No effusion. No pneumothorax. Cardiac silhouette is normal. Hilar adenopathy cannot be excluded as well. IMPRESSION: Findings suggest scattered airspace disease (left greater than right) and hilar adenopathy. Correlation is required. <Electronically signed by Jarrett Doss > 02/08/21 0451
== END ==
LOC: M RAD 14:12
PROVIDERS: ATTEND Physician Assistant
DX: J18.9 Pneumonia, unspecified organism (principal)

== ENCOUNTER → 2021-03-06 | Outpatient (REF) | payer OTHER | LOC: M SMT 16:51 | PROVIDERS: ATTEND Urology | DX: N20.1 Calculus of ureter (principal) ==

== ENCOUNTER → 2021-11-16 | Outpatient (CLI) | payer OTHER ==
[~2021-11-16] MED LIST changes: -LISI20TA20 PO; +LISI20TA37 PO; +OMEP-173 PO; -OMEP-218 PO
[2021-11-16 09:14] LABS: BASO % 0.4 % (0.0-1.0); EOS # 0.1 10^3/uL (0.0-0.5); EOS % 1.5 % (0.0-3.0); HEMATOCRIT 42.7 % (36.0-47.0); HEMOGLOBIN 13.4 g/dl (12.0-15.5); LYMPH # 1.3 10^3/uL (1.5-5.0); LYMPH % 25.5 % (24.0-44.0); MEAN CORPUSCULAR HEMOGLOBIN 28.3 pg (27.0-33.0); MEAN CORPUSCULAR HGB CONC 31.4 g/dl (32.0-36.5); MEAN CORPUSCULAR VOLUME 90.3 fl (80.0-96.0); MONO # 0.4 10^3/uL (0.0-0.8); MONO % 7.9 % (2.0-8.0); NEUTROPHILS # 3.3 10^3/uL (1.5-8.5); NEUTROPHILS % 63.7 % (36.0-66.0); PLATELET COUNT, AUTOMATED 158 10^3/uL (150-450); RED BLOOD COUNT 4.73 10^6/uL (4.00-5.40); WHITE BLOOD COUNT 5.2 10^3/uL (4.0-10.0)
[2021-11-16 09:38] LABS: HEMOGLOBIN A1c 5.7 %
[2021-11-16 10:02] LABS: ALBUMIN 3.9 GM/DL (3.2-5.2); ALT/SGPT 26 U/L (12-78); BILIRUBIN,TOTAL 0.9 MG/DL (0.2-1.0); BLOOD UREA NITROGEN 18 MG/DL (7-18); CALCIUM LEVEL 9.5 MG/DL (8.5-10.1); CARBON DIOXIDE LEVEL 29 MEQ/L (21-32); CHLORIDE LEVEL 105 MEQ/L (98-107); CHOLESTEROL LEVEL 230 MG/DL (<200); CHOLESTEROL RISK RATIO 3.833 (<5); CREATININE FOR GFR 0.66 MG/DL (0.55-1.30); CREATININE, URINE 59.2 MG/DL; GLOMERULAR FILTRATION RATE > 60.0 (>51); GLUCOSE, FASTING 104 MG/DL (70-100); HDL CHOLESTEROL 60 MG/DL (>40); LDL CHOLESTEROL 150 MG/DL (<100); MALB URINE SIEMENS 8.6 MG/L; MAU/CREAT RATIO 14.5 MCG/MG (0.0-30.0); NON-HDL-C 170 MG/DL; POTASSIUM SERUM 4.4 MEQ/L (3.5-5.1); SODIUM LEVEL 137 MEQ/L (136-145); TOTAL PROTEIN 7.4 GM/DL (6.4-8.2); TRIGLYCERIDES LEVEL 101 MG/DL (<150)
== END ==
LOC: M LAB 08:25
PROVIDERS: ATTEND Physician Assistant
DX: E55.9 Vitamin D deficiency, unspecified (principal); I10 Essential (primary) hypertension; E11.69 Type 2 diabetes mellitus with other specified complication

== ENCOUNTER → 2021-11-22 | Outpatient (CLI) | payer OTHER | LOC: M WHC 15:22 | PROVIDERS: ATTEND Physician Assistant | DX: Z12.31 Encounter for screening mammogram for malignant neoplasm of breast (principal) ==

== ENCOUNTER → 2022-05-18 | Outpatient (CLI) | payer OTHER ==
[2022-05-18 08:35] LABS: BASO % 0.6 % (0.0-1.0); EOS # 0.1 10^3/uL (0.0-0.5); EOS % 2.4 % (0.0-3.0); HEMATOCRIT 41.3 % (36.0-47.0); HEMOGLOBIN 13.1 g/dl (12.0-15.5); LYMPH # 1.4 10^3/uL (1.5-5.0); LYMPH % 27.8 % (24.0-44.0); MEAN CORPUSCULAR HEMOGLOBIN 28.5 pg (27.0-33.0); MEAN CORPUSCULAR HGB CONC 31.7 g/dl (32.0-36.5); MONO # 0.4 10^3/uL (0.0-0.8); MONO % 7.7 % (2.0-8.0); NEUTROPHILS # 3.1 10^3/uL (1.5-8.5); NEUTROPHILS % 60.9 % (36.0-66.0); PLATELET COUNT, AUTOMATED 161 10^3/uL (150-450); RED BLOOD COUNT 4.59 10^6/uL (4.00-5.40); WHITE BLOOD COUNT 5.1 10^3/uL (4.0-10.0)
[2022-05-18 08:46] LABS: HEMOGLOBIN A1c 5.6 % (4.0-6.0)
[2022-05-18 08:57] LABS: ALBUMIN 3.9 G/DL (3.2-5.2); ALKALINE PHOSPHATASE 74 U/L (46-116); ALT/SGPT 25 U/L (7.0-40); AST/SGOT 18 U/L (<34); BILIRUBIN,TOTAL 0.8 MG/DL (0.3-1.2); BLOOD UREA NITROGEN 21 MG/DL (9-23); CALCIUM LEVEL 8.6 MG/DL (8.5-10.1); CARBON DIOXIDE LEVEL 30 MMOL/L (20-31); CHLORIDE LEVEL 106 MMOL/L (98-107); CHOLESTEROL LEVEL 217 MG/DL (<200); CHOLESTEROL RISK RATIO 4.15 (<5); CREATININE FOR GFR 0.57 MG/DL (0.55-1.30); GLOMERULAR FILTRATION RATE > 60.0 (>51); GLUCOSE, FASTING 98 MG/DL (60-100); HDL CHOLESTEROL 52.2 MG/DL (>40); LDL CHOLESTEROL 138.2 MG/DL (<100); NON-HDL-C 164.8 MG/DL; POTASSIUM SERUM 4.1 MMOL/L (3.5-5.1); SODIUM LEVEL 143 MMOL/L (136-145); TRIGLYCERIDES LEVEL 133 MG/DL (<150)
[2022-05-18 09:01] LABS: FOLATE > 24.0 NG/ML (>5.4); THYROID STIMULATING HORMONE 1.789 uIU/ML (0.55-4.78); TOTAL 25(OH) VITAMIN D 49.1 NG/ML (20.0-100.0)
[2022-05-18 09:02] LABS: VITAMIN B12 LEVEL 748 PG/ML (211-911)
== END ==
LOC: M LAB 08:05
PROVIDERS: ATTEND Physician Assistant
DX: I10 Essential (primary) hypertension (principal)

== ENCOUNTER → 2022-11-20 | Outpatient (REF) | payer OTHER ==
[~2022-11-20] MED LIST changes: +FLUT50SP17; -FLUTISP
[2022-11-20 13:51] LABS: BASO % 0.5 % (0.0-1.0); EOS # 0.1 10^3/uL (0.0-0.5); EOS % 2.1 % (0.0-3.0); HEMATOCRIT 38.7 % (36.0-47.0); HEMOGLOBIN 12.1 g/dl (12.0-15.5); LYMPH # 1.5 10^3/uL (1.5-5.0); LYMPH % 25.4 % (24.0-44.0); MEAN CORPUSCULAR HEMOGLOBIN 27.8 pg (27.0-33.0); MEAN CORPUSCULAR HGB CONC 31.3 g/dl (32.0-36.5); MONO # 0.5 10^3/uL (0.0-0.8); MONO % 7.9 % (2.0-8.0); NEUTROPHILS # 3.7 10^3/uL (1.5-8.5); NEUTROPHILS % 63.6 % (36.0-66.0); PLATELET COUNT, AUTOMATED 165 10^3/uL (150-450); RED BLOOD COUNT 4.35 10^6/uL (4.00-5.40); WHITE BLOOD COUNT 5.8 10^3/uL (4.0-10.0)
[2022-11-20 13:57] LABS: VITAMIN B12 LEVEL 555 PG/ML (211-911)
[2022-11-20 13:58] LABS: FOLATE 23.1 NG/ML (>5.4); TOTAL 25(OH) VITAMIN D 31.8 NG/ML (20.0-100.0)
[2022-11-20 14:01] LABS: ALBUMIN 3.6 G/DL (3.2-5.2); ALKALINE PHOSPHATASE 68 U/L (46-116); ALT/SGPT 23 U/L (7.0-40); AST/SGOT 22 U/L (<34); BILIRUBIN,TOTAL 0.7 MG/DL (0.3-1.2); BLOOD UREA NITROGEN 19 MG/DL (9-23); CARBON DIOXIDE LEVEL 29 MMOL/L (20-31); CHLORIDE LEVEL 107 MMOL/L (98-107); CHOLESTEROL LEVEL 197 MG/DL (<200); CHOLESTEROL RISK RATIO 4.06 (<5); CREATININE FOR GFR 0.62 MG/DL (0.55-1.30); GLOMERULAR FILTRATION RATE > 60.0 (>51); GLUCOSE, FASTING 108 MG/DL (60-100); HDL CHOLESTEROL 48.5 MG/DL (>40); LDL CHOLESTEROL 118.7 MG/DL (<100); NON-HDL-C 148.5 MG/DL; POTASSIUM SERUM 4.1 MMOL/L (3.5-5.1); SODIUM LEVEL 142 MMOL/L (136-145); TOTAL PROTEIN 6.8 G/DL (5.7-8.2); TRIGLYCERIDES LEVEL 149 MG/DL (<150)
[2022-11-20 14:10] LABS: CREATININE, URINE 50.1 MG/DL
[2022-11-20 14:12] LABS: MAU/CREAT RATIO 9.9 MCG/MG (0.0-30.0)
[2022-11-20 14:26] LABS: HEMOGLOBIN A1c 5.4 % (4.0-6.0)
[2022-11-24 00:07] LABS: Methylmalonic Acid 170 nmol/L (0-378)
== END ==
LOC: M SFHCCLAY 06:47
PROVIDERS: ATTEND Physician Assistant
DX: I10 Essential (primary) hypertension (principal); E55.9 Vitamin D deficiency, unspecified; E11.69 Type 2 diabetes mellitus with other specified complication

== ENCOUNTER → 2023-02-27 | Outpatient (CLI) | payer OTHER ==
[~2023-02-27] MED LIST changes: -FLUT50SP17; +FLUTISP
== END ==
LOC: M PLAIMG 08:02
PROVIDERS: ATTEND Physician Assistant
DX: Z53.9 Procedure and treatment not carried out, unspecified reason (principal)

== ENCOUNTER → 2023-03-30 | Outpatient (CLI) | payer OTHER | LOC: M RAD 17:22 | PROVIDERS: ATTEND Physician Assistant | DX: J40 Bronchitis, not specified as acute or chronic (principal) ==

== ENCOUNTER → 2023-03-30 | Outpatient (CLI) | payer OTHER | LOC: M RAD 17:18 | PROVIDERS: ATTEND Physician Assistant | DX: S52.121D Displaced fracture of head of right radius, subsequent encounter for closed fracture with routine healing (principal) ==

== ENCOUNTER → 2023-06-27 | Outpatient (CLI) | payer OTHER ==
[2023-06-27 08:48] LABS: BASO % 0.7 % (0.0-1.0); EOS # 0.1 10^3/uL (0.0-0.5); EOS % 2.2 % (0.0-3.0); HEMATOCRIT 36.9 % (36.0-47.0); HEMOGLOBIN 11.3 g/dl (12.0-15.5); LYMPH # 1.3 10^3/uL (1.5-5.0); LYMPH % 24.6 % (24.0-44.0); MEAN CORPUSCULAR HEMOGLOBIN 25.8 pg (27.0-33.0); MEAN CORPUSCULAR HGB CONC 30.6 g/dl (32.0-36.5); MEAN CORPUSCULAR VOLUME 84.2 fl (80.0-96.0); MONO # 0.5 10^3/uL (0.0-0.8); MONO % 9.5 % (2.0-8.0); NEUTROPHILS # 3.4 10^3/uL (1.5-8.5); NEUTROPHILS % 62.4 % (36.0-66.0); PLATELET COUNT, AUTOMATED 205 10^3/uL (150-450); RED BLOOD COUNT 4.38 10^6/uL (4.00-5.40); WHITE BLOOD COUNT 5.5 10^3/uL (4.0-10.0)
[2023-06-27 09:17] LABS: HEMOGLOBIN A1c 5.8 % (4.0-6.0)
[2023-06-27 09:23] LABS: ALBUMIN 3.7 G/DL (3.2-5.2); ALKALINE PHOSPHATASE 74 U/L (46-116); ALT/SGPT 23 U/L (7.0-40); AST/SGOT 16 U/L (<34); BILIRUBIN,TOTAL 0.5 MG/DL (0.3-1.2); BLOOD UREA NITROGEN 16 MG/DL (9-23); CALCIUM LEVEL 9.8 MG/DL (8.5-10.1); CARBON DIOXIDE LEVEL 31 MMOL/L (20-31); CHLORIDE LEVEL 103 MMOL/L (98-107); CHOLESTEROL LEVEL 202 MG/DL (<200); CREATININE FOR GFR 0.61 MG/DL (0.55-1.30); GLOMERULAR FILTRATION RATE > 60.0 (>51); GLUCOSE, FASTING 98 MG/DL (60-100); HDL CHOLESTEROL 41.2 MG/DL (>40); LDL CHOLESTEROL 119.8 MG/DL (<100); NON-HDL-C 160.8 MG/DL; SODIUM LEVEL 138 MMOL/L (136-145); TRIGLYCERIDES LEVEL 205 MG/DL (<150)
[2023-06-27 09:24] LABS: TOTAL 25(OH) VITAMIN D 26.7 NG/ML (20.0-100.0); VITAMIN B12 LEVEL 1264 PG/ML (211-911)
[2023-06-27 09:25] LABS: FOLATE > 24.0 NG/ML (>5.4); THYROID STIMULATING HORMONE 1.607 uIU/ML (0.55-4.78)
== END ==
LOC: M LAB 08:15
PROVIDERS: ATTEND Physician Assistant
DX: I10 Essential (primary) hypertension (principal); E55.9 Vitamin D deficiency, unspecified; E11.69 Type 2 diabetes mellitus with other specified complication

== ENCOUNTER → 2023-07-16 | Outpatient (REF) | payer OTHER | LOC: M LAB REF 14:32 | PROVIDERS: ATTEND Surgery | DX: L72.0 Epidermal cyst (principal) ==

== ENCOUNTER → 2024-01-23 | Outpatient (CLI) | payer OTHER ==
[2024-01-23 10:27] LABS: HEMOGLOBIN A1c 5.7 % (4.0-6.0)
[2024-01-23 10:45] LABS: ALBUMIN 3.6 G/DL (3.2-5.2); ALKALINE PHOSPHATASE 74 U/L (35-104); ALT/SGPT 15 U/L (7.0-40); AST/SGOT 9 U/L (<34); BILIRUBIN,TOTAL 0.7 MG/DL (0.3-1.2); BLOOD UREA NITROGEN 13 MG/DL (9-23); CALCIUM LEVEL 9.7 MG/DL (8.3-10.6); CARBON DIOXIDE LEVEL 30 MMOL/L (20-31); CHLORIDE LEVEL 105 MMOL/L (98-107); CHOLESTEROL LEVEL 200 MG/DL (<200); CHOLESTEROL RISK RATIO 4.57 (<5); CREATININE FOR GFR 0.63 MG/DL (0.55-1.30); GLOMERULAR FILTRATION RATE > 60.0 (>45); GLUCOSE, FASTING 87 MG/DL (74-106); HDL CHOLESTEROL 43.7 MG/DL (>40); LDL CHOLESTEROL 118.3 MG/DL (<100); NON-HDL-C 156.3 MG/DL; POTASSIUM SERUM 3.8 MMOL/L (3.5-5.1); SODIUM LEVEL 139 MMOL/L (136-145); TOTAL PROTEIN 7.1 G/DL (5.7-8.2); TRIGLYCERIDES LEVEL 190 MG/DL (<150)
[2024-01-23 10:46] LABS: TOTAL 25(OH) VITAMIN D 43.2 NG/ML (20.0-100.0)
[2024-01-23 10:47] LABS: VITAMIN B12 LEVEL 1149 PG/ML (211-911)
== END ==
LOC: M LAB 08:09
DX: R79.89 Other specified abnormal findings of blood chemistry (principal)

== ENCOUNTER → 2024-02-17 | Outpatient (CLI) | payer OTHER | LOC: M RAD 14:32 | PROVIDERS: ATTEND Surgery | DX: K43.2 Incisional hernia without obstruction or gangrene (principal) ==

== ENCOUNTER 2024-04-27 08:44 | Day surgery (SDC) | payer OTHER ==
[~2024-04-27] VITALS: Ht 172.7 cm; Wt 113.0 kg
[~2024-04-27 08:44] MED LIST changes: +ACET32TAB PO; +CETI-24 PO; +CHOL400T PO; +CYAN500T14 PO; +HYDR-3490 PO; +IPRA0.00 INH; +LOSA25TA13 PO; +MUCI600T31 PO; +PROA1AER2 IN; +SEMA1PEN2 SQ; +THERTAB52 PO; +XALA0.007 OU; +ZINC50TA17 PO
[2024-04-27] MEDS ORDERED: propofoL 200 MG/20 ML VIAL As Ordered ONE (10:34)
[2024-04-27] MEDS ORDERED: LIDOCAINE 2% 100MG/5ML SDV (FOR ANES.) As Ordered ONE (10:34)
[2024-04-27 10:45] VITALS: TEMP 98.4
[2024-04-27 11:06] VITALS: BP 176/95; O2SAT 99
== END 2024-04-27 11:15 | disposition home or self-care (01) ==
LOC: M OPP 08:44
PROVIDERS: ATTEND Surgery
DX: Z12.11 Encounter for screening for malignant neoplasm of colon (principal); K57.30 Diverticulosis of large intestine without perforation or abscess without bleeding; K64.0 First degree hemorrhoids; Z88.0 Allergy status to penicillin; Z88.8 Allergy status to other drugs, medicaments and biological substances; Z91.040 Latex allergy status; Z79.51 Long term (current) use of inhaled steroids; Z79.82 Long term (current) use of aspirin; Z79.85 Long-term (current) use of injectable non-insulin antidiabetic drugs; Z79.899 Other long term (current) drug therapy; Z86.718 Personal history of other venous thrombosis and embolism; J45.909 Unspecified asthma, uncomplicated; Z87.891 Personal history of nicotine dependence

== ENCOUNTER → 2024-05-17 | Outpatient (REF) | payer OTHER ==
[2024-05-19 14:52] LABS: HPV APTIMA Not Detected (Not Detected)
== END ==
LOC: M SFHCWAGY 17:26
PROVIDERS: ATTEND Specialist
DX: Z01.419 Encounter for gynecological examination (general) (routine) without abnormal findings (principal)
CPT/HCPCS: 87624; G0123

== ENCOUNTER → 2024-05-17 | Outpatient (CLI) | payer OTHER | LOC: M WHC 14:14 | PROVIDERS: ATTEND Specialist | DX: Z12.31 Encounter for screening mammogram for malignant neoplasm of breast (principal) ==

== ENCOUNTER → 2024-07-20 | Outpatient (CLI) | payer OTHER ==
[2024-07-20 09:03] LABS: BASO % 0.5 % (0.0-1.0); EOS # 0.1 10^3/uL (0.0-0.5); EOS % 1.5 % (0.0-3.0); HEMATOCRIT 40.9 % (36.0-47.0); HEMOGLOBIN 13.1 g/dl (12.0-15.5); LYMPH # 1.5 10^3/uL (1.5-5.0); LYMPH % 24.7 % (24.0-44.0); MEAN CORPUSCULAR HEMOGLOBIN 28.5 pg (27.0-33.0); MEAN CORPUSCULAR VOLUME 89.1 fl (80.0-96.0); MONO # 0.4 10^3/uL (0.0-0.8); MONO % 7.2 % (2.0-8.0); NEUTROPHILS # 3.9 10^3/uL (1.5-8.5); NEUTROPHILS % 65.4 % (36.0-66.0); PLATELET COUNT, AUTOMATED 181 10^3/uL (150-450); RED BLOOD COUNT 4.59 10^6/uL (4.00-5.40)
[2024-07-20 09:35] LABS: ALBUMIN 3.9 G/DL (3.2-5.2); ALKALINE PHOSPHATASE 72 U/L (35-104); ALT/SGPT 19 U/L (7.0-40); AST/SGOT 14 U/L (<34); BILIRUBIN,TOTAL 0.8 MG/DL (0.3-1.2); BLOOD UREA NITROGEN 21 MG/DL (9-23); CALCIUM LEVEL 9.7 MG/DL (8.3-10.6); CARBON DIOXIDE LEVEL 30 MMOL/L (20-31); CHLORIDE LEVEL 102 MMOL/L (98-107); CHOLESTEROL LEVEL 229 MG/DL (<200); CHOLESTEROL RISK RATIO 4.63 (<5); CREATININE FOR GFR 0.69 MG/DL (0.55-1.30); GLOMERULAR FILTRATION RATE > 90.0 (>45); GLUCOSE, FASTING 89 MG/DL (74-106); HDL CHOLESTEROL 49.4 MG/DL (>40); NON-HDL-C 179.6 MG/DL; POTASSIUM SERUM 4.1 MMOL/L (3.5-5.1); SODIUM LEVEL 140 MMOL/L (136-145); TOTAL PROTEIN 7.3 G/DL (5.7-8.2); TRIGLYCERIDES LEVEL 173 MG/DL (<150)
[2024-07-20 10:21] LABS: HEMOGLOBIN A1c 5.6 % (4.0-6.0)
== END ==
LOC: M LAB 08:02
DX: E11.69 Type 2 diabetes mellitus with other specified complication (principal); E55.9 Vitamin D deficiency, unspecified